=== PATIENT | female | born 1950 | race Caucasian/White ===

== ENCOUNTER 2022-11-25 09:38 | Emergency (ER) | payer OTHER ==
--- OUTSIDE RECORDS SUMMARY | 2022-11-25 09:41 | XMS REPORT | Continuity of Care Document ---
:1950 Author Organization [facility] t Address [address] [place] [address] Dr. White. [address] [place] [address] Care Team Providers Name Role Phone MAGDALENE Attending Clinician Unavailable Kennedy_Rashel Attending Clinician Unavailable [facility] Attending Clinician Unavailable Diego Sharma MD Attending Clinician Doctor Unassigned, [facility] Attending Clinician Unavailable 1, [facility] Attending Clinician Unavailable MAGDALENE Admitting Clinician Unavailable Yolande Admitting Clinician Unavailable [facility] Admitting Clinician Unavailable Diego Sharma MD Admitting Clinician Payers Payer Name Policy Type Policy Number Effective Date Expiration Date S juan pablo [facility] [place] - [id number] 2020 [employer] (MEDICARE 00:00:00 REPLACEMENT/ADVANTA GE - HMO) [facility] - AARP - [id number] MEDICARE SOLUTIONS - MEDICARE COMPLETE (MEDICARE REPLACEMENT PPO) Problems Condition Condition Condition Status Onset Resolution Last Treating Co mments Source Name Details Category Date Date Treatment Clinician Date Infection Infection Problem Active [place] of foot of Foot 5-06 da 00:00: Medical 00 Group Abnormal Abnormal Problem Active [place] gait due Gait Due 2-02 da to muscle to Muscle 00:00: Medi kunal weakness Weakness 00 Group Type 2 Type 2 Problem Active 2019-10 [place] diabetes Diabetes 0-20 da mellitus Mellitus 00:00: Medica l without without 00 Group complicati Complicati on on Morbid Morbid Problem Active 2019-10 [place] obesity Obesity 0-20 da 00:00: Medical 00 Group Injury of Injury of Problem Active 2019-10 [place] foot Foot 0-20 da 00:00: Medical Group Body mass Body Mass Problem Active 2019-10 [place] index 40+ Index 40+ 0-20 da - severely - Severely 00:00: Me dical obese Obese 00 Group Pain in Pain in Problem Active [place] right hip Right Hip 2-11 da joint Joint 00:00: Medical 00 Group Urinary Urinary Problem Active 2018-10 [place] incontinen Incontinen 1-25 da ce ce 00:00: Medical 00 Group Hypothyroi Hypothyroi Problem Active M [place] dism dism 6-18 da 00:00: Medical 00 Group Candidiasi Candidiasi Problem Active M [place] s of skin s of Skin da Medical Group Diabetes Diabetes Problem Active [place] mellitus Mellitus [facility] Hyperlipid Hyperlipid Problem Active M [facility] emia emia [facility] Obesity Obesity Problem Active [facility] Postmenopa Postmenopa Problem Active M [facility] usal usal da bleeding Bleeding Medica l Group Hemorrhage Hemorrhage Problem Active M [facility] of rectum of Rectum da and anus and Anus Medica l Group Allergies, Adverse Reactions, Alerts This patient has no known allergies or adverse reactions. Social History Social Habit Start Date Stop Date Quantity Comments Source Sex Assigned At [facility] y of [facility] Tobacco Comment 2019-06-10 2019-06-10 quit 40 years Univer sity of 00:00:00 00:00:00 ago [facility] Smoking Status Start Date Stop Date Source Unknown if ever smoked [facility] Former smoker 2019-06-10 00:00:00 2019-06-10 00:00:00 [facility] Medications Ordered Filled Start Stop Current Ordering Indication Dosage Frequency Signature Comments Components Source Medication Medication Date Date Medication? Clinician (SIG) Name Name gemfibrozil 2019-0 Yes 600mg Take 600 U nivers 600 mg 8-28 mg by ity of tablet 15:42: mouth 2 [place] 30 (two) Medical times Branch daily before breakfast and dinner. glyBURIDE-m 2019-0 Yes 1{tbl} Take 1 Un luz etformin 8-28 tablet by ity of 5-500 mg 15:42: mouth 2 [place] tablet 30 (two) Medical times Branch daily with meals. gemfibrozil 2019-0 Yes 600mg Take 600 U nivers 600 mg 8-28 mg by ity of tablet 15:42: mouth 2 [place] 30 (two) Medical times Branch daily before breakfast and dinner. glyBURIDE-m 2019-0 Yes 1{tbl} Take 1 Un luz etformin 8-28 tablet by ity of 5-500 mg 15:42: mouth 2 [place] tablet 30 (two) Medical times Branch daily with meals. water for Yes PRN, Univers irrigation 06-11 Starting ity o f irrigation 14:23: Sun [place] solution 06/11/19 at Medic al 0923, Branch Until Discontinu ed, Routine, Intra-op sodium 2018-0 Yes PRN, Univers chloride 06-11 Starting ity of (NS) 14:23: Sun [place] injection 06/11/19 at [facility] 0923, [place] Until Discontinu ed, Routine, Intra-op neomycin-po 2018-0 Yes PRN, [facility] lymyxin-dex 06-11 Starting ity of amethasone 14:23: Sun [place] (MAXITROL) 06/11/[address] [facility] ical 3.5 0923, Branch mg/g-10,000 Until unit/g-0.1 Discontinu % ed, ophthalmic Routine, ointment Intra-op lidocaine-e 2018-0 Yes PRN, [facility] pinephrine 06-11 Starting ity o f (XYLOCAINE 14:22: Sun [place] W/EPINEPHRI 06/11/19 at Or dical NE) 2 0922, Branch %-1:200,000 Until injection Discontinu ed, Routine, Intra-op Hyaluronida 2018-0 Yes PRN, [facility] se, Human 06-11 Starting ity of Recomb. 14:21: Sun [place] (HYLENEX) 06/11/19 at [facility] injection 0921, Branch Until Discontinu ed, Routine, Intra-op gentamicin 2018-0 Yes PRN, Univers injection 06-11 Starting ity of 14:21: Sun [place] 06/11/19 at [facility] 0921, Branch Until Discontinu ed, JUDI, Intra-op EPINEPHrine 2019-0 Yes PRN, Univer s 1:1,000 (1 06-11 Starting ity o f mg/mL) 14:20: Sun (ADRENALIN) 06/11/19 at Or dical injection 09, Branch Until Discontinu ed, Routine, Intra-op DUOVISC 2019-0 Yes PRN, Univers (DUOVISC 06-11 Starting ity of VISCO 14:20: Sun ELASTIC) 3 06/11/[address] [facility] ica %-4 %(0.5 20, Branch mL) 1 % Until (0.55 mL) Discontinu intraocular ed, injection Routine, Intra-op dexamethaso 2018-0 Yes PRN, Univer s ne 06-11 Starting ity of (DECADRON 14:19: Sun PHOSPHATE) 06/11/[address] [facility] ical injection 19, Branch Until Discontinu ed, Routine, Intra-op ceFAZolin 2018-0 Yes PRN, Univers (ANCEF) 06-11 Starting ity of injection 14:19: Sun06/11/19 at [facility] 0919, Branch Until Discontinu ed, JUDI, Intra-op carbachol 2018-0 Yes PRN, Univers (MIOSTAT) 06-11 Starting ity of 0.01 % 14:19: Sun intraocular 06/11/19 at Or dical injection 918, Branch Until Discontinu ed, Routine, Intra-op bupivacaine 2019-0 Yes PRN, Univer s (preserv 06-11 Starting ity of free) 14:18: Sun (SENSORCAIN 06/11/19 at Or dicpa E MPF) 0.75 917, Branch % (7.5 Until mg/mL) Discontinu injection ed, Routine, Intra-op balanced 2019-0 Yes PRN, Univers salt irrig 06-11 Starting ity o f soln comb1 14:18: Sun (BSS PLUS) 06/11/[address] [facility] ical ophthalmic 917, Branch solution Until 500 mL bag Discontinu ed, Routine, Intra-op phenylephri 2019- 2019- No 1[drp] 1 Drop, Univers ne 06-11 Right Eye, ity of (AMY-SYNEPH 14:00: 13:34 Q10M, 3 [place]) 2.5 % 00 :00 doses, Medica l ophthalmic First dose Bra nch drops 1 on Sun Drop 06/11/19 at 0900, Last dose on Sun06/11/19 at 0920, Routine, DSU Pre-op cyclopentol 2019- No 1[drp] 1 Drop, Univers ate 06-11 Right Eye, ity of (CYCLOGYL) 14:00: 13:35 Q10M, 3 [place] as 1 % 00 :00 doses, Medical ophthalmic First dose Bra nch drops 1 on Sun Drop 06/11/19 at 0900, Last dose on Sun06/11/19 at 0920, Routine, DSU Pre-op tropicamide 2019- No 1[drp] 1 Drop, Univers (MYDRIACYL) 06-11 Right Eye, i ty of 1 % 14:00: 13:34 Q10M, 3 [place] ophthalmic 00 :00 doses, Medical drops 1 First dose Branch Drop on Sun06/11/19 at 0900, Last dose on Sun06/11/19 at 0920, Routine, DSU Pre-op ketorolac 2019- No 1[drp] 1 Drop, Un luz (ACULAR) 06-11 Right Eye, ity of 0.5 % 14:00: 13:34 Q10M, 3 [place] ophthalmic 00 :00 doses, Medical solution 1 First dose Bra nch Drop on Sun06/11/19 at 0900, Last dose on Sun06/11/19 at 0920, Routine, DSU Pre-op
Reason for Non-Formul yeny Use: SPECIFIC INDICATION FOR NONFORMULA RY PRODUCT
tribunal member approving Non-formul yeny medication : DIEGO SHARMA NaCl 0.9% Yes 500mL at 20 Univer s (NS) IV 8-28 mL/hr, IV ity of infusion 13:15: Infusion, [place] 500 [place] 00 CONTINUOUS Medical , Starting Branch Sun06/11/19 at 0815, Until Discontinu ed, Routine, DSU Pre-op Easy Touch Easy Touch No Easy Touch [place] Alcohol Alcohol Alcohol da Prep Pads Prep Pads Prep Pads Medical USE TO TEST USE TO TEST USE TO Group BLOOD BLOOD TEST BLOOD GLUCOSE GLUCOSE GLUCOSE ONCE DAILY ONCE DAILY ONCE DAILY gemfibrozil gemfibrozil No gemfibrozi [place] 600 mg 600 mg l 600 mg da tablet TAKE tablet TAKE tablet Medical 1 TABLET BY 1 TABLET BY TAKE 1 Group MOUTH TWICE MOUTH TWICE TABLET BY DAILY DAILY MOUTH TWICE DAILY glyburide 5 glyburide 5 No glyburide [place] mg-metformi mg-metformi 5 d a n 500 mg n 500 mg mg-metform M edical tablet TAKE tablet TAKE in 500 mg Group 1 TABLET BY 1 TABLET BY tablet MOUTH TWICE MOUTH TWICE TAKE 1 DAILY FOR DAILY FOR TABLET BY DIABETES DIABETES MOUTH TWICE DAILY FOR DIABETES lancing lancing No lancing [place] device USE device USE device USE da WITH WITH WITH Medical LANCETS TO LANCETS TO LANCETS TO Group TEST BLOOD TEST BLOOD TEST BLOOD GLUCOSE GLUCOSE GLUCOSE OneTouch OneTouch No OneTouch [place] Ultra Ultra Ultra da Control Control Control Medica l solution solution solution Sandra up USE TO USE TO USE TO CALIBRATE CALIBRATE CALIBRATE METER METER METER OneTouch OneTouch No OneTouch [place] Ultra Test Ultra Test Ultra Test da strips USE strips USE strips USE Medical TO TEST TO TEST TO TEST Group BLOOD BLOOD BLOOD GLUCOSE GLUCOSE GLUCOSE ONCE DAILY ONCE DAILY ONCE DAILY OneTouch OneTouch No OneTouch [place] Ultra2 Ultra2 Ultra2 da Meter USE Meter USE Meter USE Medical TO TEST TO TEST TO TEST Group BLOOD BLOOD BLOOD GLUCOSE GLUCOSE GLUCOSE Safety Safety No Safety [place] Lancets 28 Lancets 28 Lancets 28 da gauge USE gauge USE gauge USE Medical TO TEST TO TEST TO TEST Group BLOOD BLOOD BLOOD GLUCOSE GLUCOSE GLUCOSE ONCE DAILY ONCE DAILY ONCE DAILY Vital Signs Vital Name Observation Time Observation Value Comments Source BP Diastolic 2022-02-28 00:00:00 86 mm[Hg] [facility] Height 2022-02-28 00:00:00 63 [in_i] [facility] BMI (Body Mass 2022-02-28 00:00:00 41.5 kg/m2 [facility] Medical Index) Group BP Systolic 2022-02-28 00:00:00 139 mm[Hg] [facility] Body Weight 2022-02-28 00:00:00 3752 [oz_av] [facility] BP Diastolic 2021-08-02 00:00:00 75 mm[Hg] [facility] Height 2021-08-02 00:00:00 63 [in_i] [facility] BMI (Body Mass 2021-08-02 00:00:00 41.6 kg/m2 [facility] Medical Index) Group BP Systolic 2021-08-02 00:00:00 137 mm[Hg] [facility] Body Weight 2021-08-02 00:00:00 3755.2 [oz_av] [facility] Height 2021-02-17 00:00:00 63 [in_i] [facility] BP Systolic 2021-02-17 00:00:00 129 mm[Hg] [facility] BP Diastolic 2021-02-17 00:00:00 82 mm[Hg] [facility] BP Diastolic 2020-11-16 00:00:00 59 mm[Hg] [facility] Height 2020-11-16 00:00:00 63 [in_i] [facility] BMI (Body Mass 2020-11-16 00:00:00 45.4 kg/m2 [facility] Medical Index) Group BP Systolic 2020-11-16 00:00:00 159 mm[Hg] [facility] Body Weight 2020-11-16 00:00:00 4104 [oz_av] [facility] BP Diastolic 2020-08-03 00:00:00 60 mm[Hg] [facility] Height 2020-08-03 00:00:00 63 [in_i] [facility] BMI (Body Mass 2020-08-03 00:00:00 48.4 kg/m2 [facility] Medical Index) Group BP Systolic 2020-08-03 00:00:00 125 mm[Hg] [facility] Body Weight 2020-08-03 00:00:00 4374 [oz_av] [facility] BP Diastolic 2019-11-25 00:00:00 88 mm[Hg] [facility] Height 2019-11-25 00:00:00 63 [in_i] [facility] BMI (Body Mass 2019-11-25 00:00:00 46.1 kg/m2 [facility] Index) Group BP Systolic 2019-11-25 00:00:00 159 mm[Hg] [facility] Body Weight 2019-11-25 00:00:00 4160 [oz_av] [facility] BP Diastolic 2019-09-08 00:00:00 80 mm[Hg] [facility] Height 2019-09-08 00:00:00 63 [in_i] [facility] BP Systolic 2019-09-08 00:00:00 163 mm[Hg] [facility] Systolic blood 2019-06-11 15:19:00 131 mm[Hg] Univer sity of pressure [facility] Diastolic blood 2019-06-11 15:19:00 70 mm[Hg] Unive rsity of pressure [facility] Heart rate 2019-06-11 15:19:00 69 /min [facility] Body temperature 2019-06-11 15:19:00 36.67 [facility] rate 2019-06-11 15:19:00 18 /min [facility] Oxygen saturation in 2019-06-11 15:19:00 94 /min [place] [facility] blood by [facility] Pulse oximetry Branch Body height 2019-06-10 13:00:00 160 cm [facility] Body weight 2019-06-10 13:00:00 122.471 kg [facility] BMI 2019-06-10 13:00:00 47.83 kg/m2 [facility] Systolic blood 2019-06-11 15:19:00 131 mm[Hg] Univer sity of pressure [facility] Diastolic blood 2019-06-11 15:19:00 70 mm[Hg] Unive rsity of pressure [facility] Heart rate 2019-06-11 15:19:00 69 /min [facility] Body temperature 2019-06-11 15:19:00 36.67 [facility] Respiratory rate 2019-06-11 15:19:00 18 /min [facility] [place] [facility] Oxygen saturation in 2019-06-11 15:19:00 94 /min [facility] blood by [facility] Pulse oximetry Branch Body height 2019-06-10 13:00:00 160 cm [facility] [place] Body weight 2019-06-10 13:00:00 122.471 kg [facility] [place] BMI 2019-06-10 13:00:00 47.83 kg/m2 [facility] BP Diastolic 2019-04-07 00:00:00 70 mm[Hg] [facility] Height 2019-04-07 00:00:00 63 [in_i] [facility] BMI (Body Mass 2019-04-07 00:00:00 48 kg/m2 [facility] Medical Index) Group BP Systolic 2019-04-07 00:00:00 124 mm[Hg] [facility] Body Weight 2019-04-07 00:00:00 4336 [oz_av] [facility] BP Diastolic 2019-02-27 00:00:00 69 mm[Hg] [facility] Height 2019-02-27 00:00:00 63 [in_i] [facility] BP Systolic 2019-02-27 00:00:00 131 mm[Hg] [facility] BP Diastolic 2018-10-07 00:00:00 83 mm[Hg] [facility] Height 2018-10-07 00:00:00 63 [in_i] [facility] BMI (Body Mass 2018-10-07 00:00:00 48.2 kg/m2 [facility] Medical Index) Group BP Systolic 2018-10-07 00:00:00 148 mm[Hg] [facility] Body Weight 2018-10-07 00:00:00 4352 [oz_av] [facility] Procedures Procedure Date / Time Performing Clinician Source Performed unlisted imaging order 2019-11-25 00:00:00 [facility] DAY [facility]GERY - ADC 2019-06-11 05:01:00 Doctor Un[facility] CONSENT/REFUSAL FOR 2019-06-04 21:49:49 Doctor Unassigned, [facility] DIAGNOSIS AND TREATMENT [facility] ASSIGNMENT OF BENEFITS 2019-06-04 21:49:32 Doctor Unassigned, [facility] NOTICE OF PRIVACY 2019-06-04 21:49:14 [facility] CONSENT/REFUSAL FOR 2019-06-04 21:48:56 Doctor Unassigned, [facility] DIAGNOSIS AND TREATMENT [facility] ASSIGNMENT OF BENEFITS 2019-06-04 21:48:37 Doctor Unassigned, [facility] PHYSICIAN ORDERS 2019-06-04 05:01:00 Doctor Unassigned, [facility] Append[facility] Bladder Suspension [place] [facility] Hysterectomy [facility] Anesth Tubal Ligation [facility] Lap Cholecystectomy [place] [facility] Cervical Laminoplsty 2/> [facility] Encounters Start End Encounter Admission Attending Care Care Encounter Source Date/Time Date/Time Type Type Clinicians Facility Department ID 2022-05-16 2022-05-16 Outpatient [place] [id number] [place] 00:00:00 00:00:00 [facility] 0802 [facility] 2022-02-28 2022-02-28 Isidro Lanier [facility] [place] - [id number]- [place] 00:00:00 00:00:00 MD Rashel: 517 da 600 [facility] [address], [place] [address] , Ph. 2021-08-02 2021-08-02 Isidro Lanier [facility] [place] - [id number] [place] 00:00:00 00:00:00 MD Rashel: 019 da 600 [facility] 201, [facility] [address] , Ph. 2021-02-17 2021-02-17 Isidro Lanier [facility] [place] - [id number] [place] 00:00:00 00:00:00 MD Rashel: [address], [place] [address] , Ph. 2021-02-16 2021-02-16 Outpatient A_Byrd [facility] [id number] [place] 11:41:00 11:41:00 505 [facility] 2020-11-16 2020-11-16 Isidro N A_Byrd [facility] [place] - [id number] [place] 00:00:00 00:00:00 MD Rashel: [address], [place] [address] , Ph. 2020-11-15 2020-11-15 [facility] [id number] [place] 04:28:00 04:28:00 201 Medical [facility] 2020-10-26 2020-10-[address] [facility] [id number] [place] 10:27:00 10:27:00 112 Medical [facility] 2020-08-03 2020-08-03 Isidro N [facility] [place] - [id number]- [id number] [place] 00:00:00 00:00:00 MD Rashel: [address], [place] [address] , Ph. 2019-12-24 2019-12-24 Outpatient A_[facility]rd [facility] [id number] [place] 11:03:00 11:03:00 311 Medical [facility] 2019-11-25 2019-11-25 Isidro N A_Byrd MM [place] - 9439- [place] 00:00:00 00:00:00 MD Rashel: [address], [place] [address] , Ph. 2019-10-11 2019-10-11 Outpatient A_Byrd [facility] [id number] [place] 03:37:00 03:37:00 228 [facility] 2019-09-08 2019-09-08 Isidro N [facility] [place] - [id number] [place] 00:00:00 00:00:00 MD Rashel: 125 600 [facility] [place] [address], [facility], [place] [address] , Ph. 2019-06-11 2019-06-11 [facility] [id number] [facility] 07:40:00 10:40:00 Encounter Diego Heath [id number] ity of [place] [id number] [place] [id number] [address] 2019-06-11 2019-06-11 [facility] [id number] 07:40:00 10:40:00 Encounter Diego Heath [id number] [place] [id number] Surgical [id number] [place] [id number] 2019-06-11 2019-06-11 Orders Doctor MARGARITA [id number] [facility] 00:00:00 00:00:00 Only Unassigned, ELIZ [id number] ity of [facility] [id number] Kishan as [id number] [facility] 009 [place] 2019-06-11 2019-06-11 Orders Doctor MARGARITA [id number] 00:00:00 00:00:00 Only Unassigned, ELIZ [id number] [facility] [id number] [facility] 2019-06-04 2019-06-04 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, 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 [facility] [id number] [facility] 16:51:56 17:06:56 Visit Diego Sharma [id number] 0 [place] [id number] [place] [id number] [facility] 353 Branch 2019-06-04 2019-06-04 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, Adc Lab [facility] [id number] 16:51:56 17:06:56 Visit Kumar [id number] [place] [id number] [place] [id number] 353 2019-04-07 2019-04-07 Isidro Enrique [facility] [place] - [id number] [place] 00:00:00 00:00:00 MD Rashel: 624 da 600 [facility], [place] [address], [place] [address] , Ph. 2019-02-27 2019-02-27 Isidro Enrique [facility] [place] - [id number] [place] 00:00:00 00:00:00 MD Rashel: 516 da 600 [facility], [place] [address], [facility] [address] , Ph. 2018-10-07 2018-10-07 Isidro Enrique [facility] [place] - [id number] [place] 00:00:00 00:00:00 MD Rashel: 224 da 600 [facility], [facility] [address], [place] [address] , Ph. Results This patient has no known results.
--- NOTE | 2022-11-25 10:39 | RAD REPORT ---
EXAM DESCRIPTION: CT - [id number] - 11/25/2022 10:32 am CLINICAL HISTORY: Trauma, head and neck injury. head injury COMPARISON: <Comparisons> TECHNIQUE: Axial 5 mm thick images of the head were obtained. Axial 2 mm thick images of the cervical spine were obtained with sagittal and coronal reconstruction images generated and reviewed. All CT scans are performed using dose optimization technique as appropriate and may include automated exposure control or mA/KV adjustment according to patient size. FINDINGS: CT HEAD WITHOUT CONTRAST: No acute hemorrhage, hydrocephalus or extra-axial collection is identified.No areas of brain edema or midline shift. Right forehead laceration The paranasal sinuses and mastoids are clear.The calvarium is intact. CT CERVICAL SPINE WITHOUT CONTRAST: No fracture or subluxation.No prevertebral soft tissues swelling is identified. Status post C5-C7 ACD F. Hardware is intact. Neural foraminal narrowing is on the left at these levels. There has been post erior decompression as well. IMPRESSION: No acute intracranial or cervical spine findings.
[2022-11-25] MEDS ORDERED: LIDOCAINE 1% 20 ML MDV ONE (11:20)
--- NOTE | 2022-11-25 12:14 | ER ---
Nurse's Notes [facility] Name: Angela Mccain Age: 72 yrs Sex: Female : 1950 Arrival Date: 11/25/2022 Time: 09:39 Bed 14 Private MD: Diagnosis: Head injury;Facial laceration Presentation: 11/25 09:40 Chief complaint: EMS states: Fell forward out of wheelchair while reaching for ph cigarettes, hit R side of forehead on a post, no LOC, does not take blood thinners. Coronavirus screen: Vaccine status: Patient reports being unvaccinated. Ebola Screen: No symptoms or risks identified at this time. Initial Sepsis Screen: Does the patient meet any 2 criteria? No. Patient's initial sepsis screen is negative. Does the patient have a suspected source of infection? No. Patient's initial sepsis screen is negative. Risk Assessment: Do you want to hurt yourself or someone else? Patient reports no desire to harm self or others. Onset of symptoms was November 25, 2022. 09:40 Method Of Arrival: EMS: [facility] 09:40 Acuity: RADHA 3 09:40 Care prior to arrival: Glucose check: 160. Mechanism of Injury: Fall wheelchair. Trauma db event details: Injury occurred in the [facility]. Triage Assessment: 09:44 General: Appears in no apparent distress. comfortable, Behavior is calm, cooperative, ph appropriate for age. Pain: Complains of pain in right side of forehead. Neuro: Level of Consciousness is awake, alert, obeys commands, Oriented to person, place, time, situation. Trauma Activation: Not Applicable Physician: ED Physician; Name: ; Notified At: ; Arrived At: Physician: General Surgeon; Name: ; Notified At: ; Arrived At: Physician: Radiology; Name: ; Notified At: ; Arrived At: Physician: Respiratory; Name: ; Notified At: ; Arrived At: Physician: Lab; Name: ; Notified At: ; Arrived At: Historical: - Allergies: 09:43 vaccines; ph - PMHx: 09:41 Diabetes mellitus; Hypercholesterolemia; ph - Immunization history:: Adult Immunizations not immunized. - Social history:: Smoking status: Patient reports the use of cigarette tobacco products, denies chronic smoking, but will smoke occasionally. - Immunization history: Last tetanus immunization: - up to date. Screenin:05 Abuse screen: Denies threats or abuse. Denies injuries from another. Tuberculosis db screening: No symptoms or risk factors identified. 12:37 [facility] ED Fall Risk Assessment (Adult) History of falling in the last 3 months, db including since admission Yes- single mechanical fall (1 pt) Confusion or Disorientation No (0 pts) Intoxicated or Sedated No (0 pts) Impaired Gait Yes (1 pt) Mobility Assist Device Used Yes (1 pt) Altered Elimination No (0 pt) Score/Fall Risk Level 3 or more points = High Risk Oriented to surroundings, Maintained a safe environment, Educated pt \T\ family on fall prevention, incl call for assistance when getting out of bed, Assessed \T\ reinforced patient's understanding of fall precautions. Nutritional screening: No deficits noted. Primary Survey: 09:40 NO uncontrolled hemorrhage observed. Breathing/Chest: Spontaneous respiratory effort, db equal unlabored respirations, breath sounds clear bilaterally, regular pattern, symmetrical chest rise and fall. Respiratory effort: spontaneous, unlabored, Breath sounds: clear, bilaterally. Respiratory pattern: regular, Chest inspection: symmetrical rise and fall of the chest. Circulation: No external hemorrhage present. Regular and strong central pulse, skin warm/dry/normal color. Disability Client is alert. Exposure/Environment: A warming method has been applied: A warm blanket has been provided to the patient. Reassessment Breathing: Spontaneous respiratory effort, equal unlabored respirations, breath sounds clear bilaterally, regular pattern with symmetrical chest rise and fall. Respiratory effort Spontaneous Unlabored Breath sounds Clear Respiratory pattern Regular Circulation: No external hemorrhage noted. Regular and strong central pulse, skin warm/dry/normal color. Disability: Alert. Assessment: 09:40 Reassessment: Patient appears in no apparent distress at this time. small laceration to db head. Respiratory: Airway is patent Respiratory effort is even, unlabored, Respiratory pattern is regular, symmetrical. Injury Description: Head injury sustained to face and right side of forehead. 10:06 Reassessment: Patient appears in no apparent distress at this time. Patient and/or db family updated on plan of care and expected duration. Pain level reassessed. Patient is alert, oriented x 3, equal unlabored respirations, skin warm/dry/pink. 10:56 Reassessment: Patient and/or family updated on plan of care and expected duration. Pain db level reassessed. Patient is alert, oriented x 3, equal unlabored respirations, skin warm/dry/pink. patient returned to room from CT. Family at bedside. 11:30 Reassessment: provider at bedside for laceration repair. General: Appears in no db apparent distress. comfortable, Behavior is calm, cooperative. 12:13 Reassessment: Patient appears in no apparent distress at this time. triple antibiotic db ointment placed on suture area over right eye. Vital Signs: 09:40 BP 138 / 51; Pulse 74; Resp 18; Temp 97.7; Pulse Ox 97% on R/A; Weight 108.86 kg; ph Height 5 ft. 3 in. (160.02 cm); 11:10 BP 105 / 55; Pulse 65; Resp 18; Pulse Ox 98% on R/A; db 12:00 BP 106 / 42; Pulse 68; Resp 18; Pulse Ox 99% on R/A; db 09:40 Body Mass Index 42.51 (108.86 kg, 160.02 cm) ph [place] Coma Score: 10:05 Eye Response: spontaneous(4). Verbal Response: oriented(5). Motor Response: obeys db commands(6). Total: 15. Trauma Score (Adult): 10:05 Eye Response: spontaneous(1); Verbal Response: oriented(1); Motor Response: obeys db commands(2); Systolic BP: > 89 mm Hg(4); Respiratory Rate: 10 to 29 per min(4); Bibiana Score: 15; Trauma Score: 12 ED Course: 09:39 Patient arrived in ED. ph 09:39 Gonzalez Cronin PA is PHCP. jmm 09:39 Malick Ramos MD is Attending Physician. jmm 09:41 Triage completed. ph 09:44 Arm band placed on Patient placed in an exam room, on a stretcher, on pulse oximetry. ph 10:02 Sharon Lovelace, JESSE is Primary Nurse. db 10:05 Patient has correct armband on for positive identification. Bed in low position. Call db light in reach. Side rails up X2. 10:05 Patient maintains SpO2 saturation greater than 95% on room air. db 10:34 CT Head C Spine In Process Unspecified. EDMS 12:14 Thermoregulation: warm blanket given to patient. db 12:37 No provider procedures requiring assistance completed. Patient did not have IV access db during this emergency room visit. Administered Medications: 11:19 Drug: Lidocaine (1 %) 20 ml {Note: Given to PA for laceration repair.} Volume: 20 ml; db Route: Infiltration; Medication: 11:21 VIS not applicable for this client. db Intake: 12:37 PO: 0ml; Total: 0ml. db Outcome: 12:14 Discharge ordered by . ade 12:36 Discharged to home via wheelchair, with family. db 12:36 Condition: stable 12:36 Discharge instructions given to patient, family, Instructed on discharge instructions, follow up and referral plans. 12:37 Patient's length of stay was not longer than 2 hours. db 12:45 Patient left the ED. mm9 Signatures: Dispatcher [employer] EDMS Gonzalez Cronin PA PA jmm Hall, Patricia, RN RN ph Benton, Danielle, RN RN db Martinez, Maria mm9 Corrections: (The following items were deleted from the chart) 09:44 09:41 Allergies: No Known Allergies; [facility]
--- NOTE | 2022-11-25 12:15 | EDPHYS ---
Physician Documentation [facility] Name: Angela Mccain Age: 72 yrs Sex: Female : 1950 Arrival Date: 11/25/2022 Time: 09:39 Bed 14 Private MD: ED Physician Malick Ramos HPI: 11/25 09:39 This 72 yrs old Unknown Female presents to ER via EMS with complaints of Fall Injury. jmm 09:39 Details of fall: The patient fell from an upright position. Onset: The symptoms/episode jmm began/occurred acutely. Associated injuries: The patient sustained injury to the head. Is a 72-year-old female with history of diabetes mellitus, hyperlipidemia the presents emerged part with complaints of headache and neck pain following a fall which occurred just prior to arrival. Patient states she tripped hitting her head. Denies LOC LOC. Patient is not taking any anticoagulants. Denies nausea or vomiting. Historical: - Allergies: 09:43 vaccines; ph - PMHx: 09:41 Diabetes mellitus; Hypercholesterolemia; ph - Immunization history:: Adult Immunizations not immunized. - Social history:: Smoking status: Patient reports the use of cigarette tobacco products, denies chronic smoking, but will smoke occasionally. - Immunization history: Last tetanus immunization: - up to date. ROS: 09:39 Constitutional: Negative for fever, chills, and weight loss, Cardiovascular: Negative jmm for chest pain, palpitations, and edema, Respiratory: Negative for shortness of breath, cough, wheezing, and pleuritic chest pain. 09:39 Neuro: Positive for headache. 09:39 All other systems are negative. Exam: 09:39 Constitutional: This is a well developed, well nourished patient who is awake, alert, jmm and in no acute distress. 09:39 Eyes: EOMI, no conjunctival erythema appreciated ENT: Moist Mucus Membranes Neck: Trachea midline, Supple Chest/axilla: Normal chest wall appearance and motion. Cardiovascular: Regular rate and rhythm. No edema appreciated Respiratory: Normal respirations, no respiratory distress appreciated Abdomen/GI: Non distended Back: Normal ROM Skin: General appearance color normal MS/ Extremity: Moves all extremities, no obvious deformities appreciated, no edema noted to the lower extremities 09:39 Head/face: 3 cm laceration noted to the right eyebrow. 09:39 Neuro: Orientation: is normal, Mentation: is normal, Memory: is normal. 09:39 Psych: Behavior/mood is pleasant, cooperative. Vital Signs: 09:40 BP 138 / 51; Pulse 74; Resp 18; Temp 97.7; Pulse Ox 97% on R/A; Weight 108.86 kg; ph Height 5 ft. 3 in. (160.02 cm); 11:10 BP 105 / 55; Pulse 65; Resp 18; Pulse Ox 98% on R/A; db 12:00 BP 106 / 42; Pulse 68; Resp 18; Pulse Ox 99% on R/A; db 09:40 Body Mass Index 42.51 (108.86 kg, 160.02 cm) ph [place] Coma Score: 10:05 Eye Response: spontaneous(4). Verbal Response: oriented(5). Motor Response: obeys db commands(6). Total: 15. Trauma Score (Adult): 10:05 Eye Response: spontaneous(1); Verbal Response: oriented(1); Motor Response: obeys db commands(2); Systolic BP: > 89 mm Hg(4); Respiratory Rate: 10 to 29 per min(4); Bibiana Score: 15; Trauma Score: 12 Laceration: 12:13 Wound Repair of 3cm ( 1.2in ) subcutaneous laceration to middle aspect of right eyebrow jmm and outer aspect of right eyebrow. Distal neuro/vascular/tendon intact. Anesthesia: Local anesthetic administered with 3 mls of 1% lidocaine. Wound prep: Simple cleansing with hibiclenz by ut. Skin closed with 4 5-0 Prolene using simple sutures and sterile technique. Patient tolerated well. MDM: 09:39 Patient medically screened. [facility] 12:12 Data reviewed: vital signs, nurses notes. I considered the following discharge [facility] prescriptions or medication management in the emergency department Medications were administered in the Emergency Department. See MAR. Counseling: I had a detailed discussion with the patient and/or guardian regarding: the historical points, exam findings, and any diagnostic results supporting the discharge/admit diagnosis, radiology results, the need for outpatient follow up, to return to the emergency department if symptoms worsen or persist or if there are any questions or concerns that arise at home. ED course: CT is negative. Patient given head injury and wound infection return precautions.. 11/25 09:40 Order name: CT Head C Spine; Complete Time: 10:42 [facility] Administered Medications: 11:19 Drug: Lidocaine (1 %) 20 ml {Note: Given to CLAUDIA for laceration repair.} Volume: 20 ml; db Route: Infiltration; Disposition Summary: 11/25/22 12:14 Discharge Ordered Location: Home [facility] Condition: Stable jm Diagnosis - Head injury jm - Facial laceration [facility] Followup: [facility] - With: Private Physician - When: 1 week - Reason: Recheck today's complaints, Continuance of care, Staple/Suture removal, Re-evaluation by your physician Discharge Instructions: - Discharge Summary Sheet jm - Head Injury, Adult jm - Facial Laceration [facility] Forms: - Medication Reconciliation Form [facility] - Thank You Letter [facility] - Antibiotic Education [facility] - Prescription Opioid Use [facility] Signatures: Dispatcher [employer] Gonzalez Cisneros PA PA jmm Hall, Patricia, RN RN ph Benton, Danielle, RN RN db Corrections: (The following items were deleted from the chart) 09:44 09:41 Allergies: No Known Allergies; [facility]
[2022-11-25 12:51] VITALS: TEMP 97.7
[2022-11-25 12:53] VITALS: BP 106/42; O2SAT 99
== END 2022-11-25 12:45 | disposition home or self-care (01) ==
LOC: ER 09:38
PROC: 0HQ1XZZ Repair Face Skin, External Approach (ICD-10-PCS; principal; 2022-11-25)
DX: S01.111A Laceration without foreign body of right eyelid and periocular area, initial encounter (principal); S09.90XA Unspecified injury of head, initial encounter; E11.9 Type 2 diabetes mellitus without complications; E78.00 Pure hypercholesterolemia, unspecified; F17.210 Nicotine dependence, cigarettes, uncomplicated; Z88.7 Allergy status to serum and vaccine
CPT/HCPCS: 70450; 72125; 99284; 12013; J2001

== ENCOUNTER 2024-03-17 18:12 | Inpatient (IN) | payer OTHER ==
--- OUTSIDE RECORDS SUMMARY | 2024-03-17 18:19 | XMS REPORT | Continuity of Care Document ---
Author Name Unknown Address [address] [facility] [address] [place] [address] [facility] Address [address] [facility] [address] [place] [address] Care Team Providers Care Supervisor Steffen House Name Role Phone SAMCON GUNN Attending Clinician Unavailable ERJOVION_Poonam Attending Clinician Unavailable AMBREEN_MIKHAIL Attending Clinician Unavailable A_Rashel Attending Clinician Unavailable [facility] Attending Clinician Unavailable Diego Gerard MD Attending Clinician [phone] Doctor Unassigned, Grandin Attending Clinician U navailable 1, [facility] Attending Clinician Unavailable ERJOVION_R Admitting Clinician Unavailable MAGDALENE Admitting Clinician Unavailable Yolande Admitting Clinician Unavailable [facility] Admitting Clinician Unavailable Diego Gerard MD Admitting Clinician [phone] Payers Payer Name Policy Type Policy Number Effective Date Expirati on Date Source [place] [place] 5 [id number] 2023 00:00:00 [facility] (MEDICARE REPLACEMENT/ADVANTA GE - HMO) [id number] 2023 00:00:00 [employer] (MEDICARE REPLACEMENT/ADVANTA GE - HMO) [id number] [place]: HAIDER DIEZ [id number] 2009 00:00:00 [facility] [place] [facility] (MEDICARE REPLACEMENT/ADVANTA GE - HMO) [id number] 2020 00:00:00 [facility] MEDICARE SOLUTIONS - MEDICARE COMPLETE (MEDICARE REPLACEMENT PPO) [id number] Problems Condition Name Condition Details Condition Category Status Onset Date Resolution Date Last Treatment Date Treating Clinician Comments Source Pulmonary emphysema Pulmonary Emphysema Problem Active 4 00:00: 00 [place] [facility] 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 Problem Active 01-16 00:00: 00 [place] [facility] Body mass index 40+ - severely obese Body Mass Index 40+ - Severely Obese Problem Active 4-04 00:00: 00 [place] [facility] Bilateral osteoarthr itis of knees Bilateral Osteoarthr itis of Knees Problem Active 4-04 00:00: 00 [place] [facility] Osteoarthr itis of joint of bilateral hands Osteoarthr itis of Joint of Bilateral Hands Problem Active 4-04 00:00: 00 [place] [facility] Type 2 diabetes mellitus Type 2 Diabetes Mellitus Problem Active 4-04 00:00: 00 [place] [facility] Hyperchole sterolemia Hyperchole sterolemia Problem Active 4-04 00:00: 00 [place] [facility] Morbid obesity Morbid Obesity Problem Active 4-04 00:00: 00 [place] [facility] Smoker Smoker Problem Active 4-04 00:00: 00 [place] [facility] Infection of foot Infection of Foot Problem Active 5-06 00:00: 00 [facility] Abnormal gait due to muscle weakness Abnormal Gait Due to Muscle Weakness Problem Active 2-02 00:00: 00 [facility] Type 2 diabetes mellitus without complicati on Type 2 Diabetes Mellitus without Complicati on Problem Active 2019-10 020 00:00: 00 [facility] Morbid obesity Morbid Obesity Problem Active 2019-10 0-20 00:00: 00 [facility] Injury of foot Injury of Foot Problem Active 2019-10 0 00:00: 00 [facility] Body mass index 40+ - severely obese Body Mass Index 40+ - Severely Obese Problem Active 2019-10 0-20 00:00: 00 [facility] Pain in right hip joint Pain in Right Hip Joint Problem Active 2-11 00:00: 00 [facility] Urinary incontinen ce Urinary Incontinen ce Problem Active 2018-10 00:00: 00 [facility] Hypothyroi dism Hypothyroi dism Problem Active 04-01 00[facility]00: 00 [facility] Candidiasi s of skin Candidiasi s of Skin Problem Active [facility] Diabetes mellitus Diabetes Mellitus Problem Active [facility] Hyperlipid emia Hyperlipid emia Problem Active [facility] Obesity Obesity Problem Active [facility] Postmenopa usal bleeding Postmenopa usal Bleeding Problem Active [facility] Hemorrhage of rectum and anus Hemorrhage of Rectum and Anus Problem Active [facility] Social History Social Habit Start Date Stop Date Quantity Comments Source Sex Assigned At [facility] Tobacco Comment 2019-06-10 00:00:00 2019-06-10 00:00:00 quit 40 years ago [facility] Smoking Status Start Date Stop Date Source Unknown if ever smoked [facility] Heavy Tobacco Smoker [facility] [place] Former smoker 2019-06-10 00:00:00 2019-06-10 00:00:00 [facility] Medications Ordered Medication Name Filled Medication Name Start Date Stop Date Current Medication? Ordering Clinician Indication Dosage Frequency Signature (SIG) Comments Components Source water for irrigation irrigation solution 06-11 14:23: 00 Yes PRN, Starting Sun06/11/19 at 0923, Until Discontinu ed, Routine, Intra-op [facility] sodium chloride (NS) injection 06-11 14:23: 00 Yes PRN, Starting Sun06/11/19 at 0923, Until Discontinu ed, Routine, Intra-op [facility] neomycin-po lymyxin-dex amethasone (MAXITROL) 3.5 mg/g-10,000 unit/g-0.1 % ophthalmic ointment 06-11 14:23: 00 Yes PRN, Starting Sun06/11/19 at 0923, Until Discontinu ed, Routine, Intra-op [facility] lidocaine-e pinephrine (XYLOCAINE W/EPINEPHRI NE) 2 %-1:200,000 injection 06-11 14:22: 00 Yes PRN, Starting Sun06/11/19 at 0922, Until Discontinu ed, Routine, Intra-op [facility] Hyaluronida se, Human Recomb. (HYLENEX) injection 06-11 14:21: 00 Yes PRN, Starting Sun06/11/19 at 0921, Until Discontinu ed, Routine, Intra-op [facility] gentamicin injection 06-11 14:21: 00 Yes PRN, Starting Sun06/11/19 at 0921, Until Discontinu ed, JUDI, Intra-op [facility] EPINEPHrine 1:1,000 (1 mg/mL) (ADRENALIN) injection 06-11 14:20: 00 Yes PRN, Starting Sun06/11/19 at 0920, Until Discontinu ed, Routine, Intra-op [facility] DUOVISC (DUOVISC VISCO ELASTIC) 3 %-4 %(0.5 mL) 1 % (0.55 mL) intraocular injection 06-11 14:20: 00 Yes PRN, Starting Sun06/11/19 at 0920, Until Discontinu ed, Routine, Intra-op [facility] dexamethaso ne (DECADRON PHOSPHATE) injection 06-11 14:19: 00 Yes PRN, Starting Sun06/11/19 at 0919, Until Discontinu ed, Routine, Intra-op [facility] ceFAZolin (ANCEF) injection 06-11 14:19: 00 Yes PRN, Starting Sun06/11/19 at 0919, Until Discontinu ed, JUDI, Intra-op [facility] carbachol (MIOSTAT) 0.01 % intraocular injection 06-11 14:19: 00 Yes PRN, Starting Sun06/11/19 at 0919, Until Discontinu ed, Routine, Intra-op [facility] bupivacaine (preserv free) (SENSORCAIN E MPF) 0.75 % (7.5 mg/mL) injection 06-11 14:18: 00 Yes PRN, Starting Sun06/11/19 at 0918, Until Discontinu ed, Routine, Intra-op [facility] balanced salt irrig soln comb1 (BSS PLUS) ophthalmic solution 500 mL bag 06-11 14:18: 00 Yes PRN, Starting Sun06/11/19 at 0918, Until Discontinu ed, Routine, Intra-op [facility] phenylephri ne (AMY-SYNEPH RINE) 2.5 % ophthalmic drops 1 Drop 06-11 14:00: 00 06-11 13:34 :00 No 1[drp] 1 Drop, Right Eye, Q10M, 3 doses, First dose on Sun06/11/19 at 0900, Last dose on Sun06/11/19 at 0920, Routine, DSU Pre-op [facility] cyclopentol ate (CYCLOGYL) 1 % ophthalmic drops 1 Drop 06-11 14:00: 00 06-11 13:35 :00 No 1[drp] 1 Drop, Right Eye, Q10M, 3 doses, First dose on Sun06/11/19 at 0900, Last dose on Sun06/11/19 at 0920, Routine, [facility] t[facility] (MYD[facility]ACYL[facility] 1 % ophthalmic drops 1 Drop 06-11 14:00: 00 06-11 13:34 :00 No 1[drp] 1 Drop, Right Eye, Q10M, 3 doses, First dose on Sun06/11/19 at 0900, Last dose on Sun06/11/19 at 0920, Routine, DSU [facility] ketorolac (ACULAR) 0.5 % ophthalmic solution 1 Drop 06-11 14:00: 00 06-11 13:34 :00 No 1[drp] 1 Drop, Right Eye, Q10M, 3 doses, First dose on Sun06/11/19 at 0900, Last dose on Sun06/11/19 at 0920, Routine, DSU Pre-op
Reason for Non-Formul yeny Use: SPECIFIC INDICATION FOR NONFORMULA RY PRODUCT
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 Non-formul yeny medication : DIEGO GERARD [facility] NaCl 0.9% (NS) IV infusion 500 mL 06-11 13:15: 00 Yes 500mL at 20 mL/hr, IV Infusion, CONTINUOUS , Starting Sun06/11/19 at 0815, Until Discontinu ed, Routine, DSU Pre-op [facility] Easy Touch Alcohol Prep Pads USE TO TEST BLOOD GLUCOSE ONCE DAILY Easy Touch Alcohol Prep Pads USE TO TEST BLOOD GLUCOSE ONCE DAILY No Easy Touch Alcohol Prep Pads USE TO TEST BLOOD GLUCOSE ONCE DAILY [facility] gemfibrozil 600 mg tablet TAKE 1 TABLET BY MOUTH TWICE DAILY gemfibrozil 600 mg tablet TAKE 1 TABLET BY MOUTH TWICE DAILY No gemfibrozi l 600 mg tablet TAKE 1 TABLET BY MOUTH TWICE DAILY [facility] glyburide 5 mg-metformi n 500 mg tablet TAKE 1 TABLET BY MOUTH TWICE DAILY FOR DIABETES glyburide 5 mg-metformi n 500 mg tablet TAKE 1 TABLET BY MOUTH TWICE DAILY FOR DIABETES No glyburide 5 mg-metform in 500 mg tablet TAKE 1 TABLET BY MOUTH TWICE DAILY FOR DIABETES [facility] lancing device USE WITH LANCETS TO TEST BLOOD GLUCOSE lancing device USE WITH LANCETS TO TEST BLOOD GLUCOSE No lancing device USE WITH LANCETS TO TEST BLOOD GLUCOSE [facility] OneTouch Ultra Control solution USE TO CALIBRATE METER OneTouch Ultra Control solution USE TO CALIBRATE METER No OneTouch Ultra Control solution USE TO CALIBRATE METER [facility] OneTouch Ultra Test strips USE TO TEST BLOOD GLUCOSE ONCE DAILY OneTouch Ultra Test strips USE TO TEST BLOOD GLUCOSE ONCE DAILY No OneTouch Ultra Test strips USE TO TEST BLOOD GLUCOSE ONCE DAILY [facility] OneTouch Ultra2 Meter USE TO TEST BLOOD GLUCOSE OneTouch Ultra2 Meter USE TO TEST BLOOD GLUCOSE No OneTouch Ultra2 Meter USE TO TEST BLOOD GLUCOSE [facility] Safety Lancets 28 gauge USE TO TEST BLOOD GLUCOSE ONCE DAILY Safety Lancets 28 gauge USE TO TEST BLOOD GLUCOSE ONCE DAILY No Safety Lancets 28 gauge USE TO TEST BLOOD GLUCOSE ONCE DAILY [facility] gemfibrozil 600 mg tablet Take 1 tablet twice a day by oral route. gemfibrozil 600 mg tablet Take 1 tablet twice a day by oral route. No 1 BID gemfibrozi l 600 mg tablet Take 1 tablet twice a day by oral route. [facility] glyburide 5 mg-metformi n 500 mg tablet Take 1 tablet twice a day by oral route. glyburide 5 mg-metformi n 500 mg tablet Take 1 tablet twice a day by oral route. No 1 BID glyburide 5 mg-metform in 500 mg tablet Take 1 tablet twice a day by oral route. [facility] Vital Signs Vital Name Observation Time Observation Value Comments S ource BP Diastolic 2023-01-16 00:00:00 72 mm[Hg] [facility] Height 2023-01-16 00:00:00 63 [in_i] [facility] BMI (Body Mass Index) 2023-01-16 00:00:00 42.7 kg/m2 [facility] BP Systolic 2023-01-16 00:00:00 118 mm[Hg] [facility] Body Weight 2023-01-16 00:00:00 3856 [oz_av] [facility] BP Diastolic 2022-02-28 00:00:00 86 mm[Hg] [facility] Height 2022-02-28 00:00:00 63 [in_i] [facility] BMI (Body Mass Index) 2022-02-28 00:00:00 41.5 kg/m2 [facility] BP Systolic 2022-02-28 00:00:00 139 mm[Hg] [facility] Body Weight 2022-02-28 00:00:00 3752 [oz_av] [facility] BP Diastolic 2021-08-02 00:00:00 75 mm[Hg] [facility] Height 2021-08-02 00:00:00 63 [in_i] [facility] BMI (Body Mass Index) 2021-08-02 00:00:00 41.6 kg/m2 [facility] BP Systolic 2021-08-02 00:00:00 137 mm[Hg] [facility] Body Weight 2021-08-02 00:00:00 3755.2 [oz_av] [facility] Height 2021-02-17 00:00:00 63 [in_i] [facility] BP Systolic 2021-02-17 00:00:00 129 mm[Hg] [facility] BP Diastolic 2021-02-17 00:00:00 82 mm[Hg] [facility] BP Diastolic 2020-11-16 00:00:00 59 mm[Hg] [facility] Height 2020-11-16 00:00:00 63 [in_i] [facility] BMI (Body Mass Index) 2020-11-16 00:00:00 45.4 kg/m2 [facility] BP Systolic 2020-11-16 00:00:00 159 mm[Hg] [facility] Body Weight 2020-11-16 00:00:00 4104 [oz_av] [facility] BP Diastolic 2020-08-03 00:00:00 60 mm[Hg] [facility] Height 2020-08-03 00:00:00 63 [in_i] [facility] BMI (Body Mass Index) 2020-08-03 00:00:00 48.4 kg/m2 [facility] BP Systolic 2020-08-03 00:00:00 125 mm[Hg] [facility] Body Weight 2020-08-03 00:00:00 4374 [oz_av] [facility] BP Diastolic 2019-11-25 00:00:00 88 mm[Hg] [facility] Height 2019-11-25 00:00:00 63 [in_i] [facility] BMI (Body Mass Index) 2019-11-25 00:00:00 46.1 kg/m2 [facility] BP Systolic 2019-11-25 00:00:00 159 mm[Hg] [facility] Body Weight 2019-11-25 00:00:00 4160 [oz_av] [facility] BP Diastolic 2019-09-08 00:00:00 80 mm[Hg] [facility] Height 2019-09-08 00:00:00 63 [in_i] [facility] BP Systolic 2019-09-08 00:00:00 163 mm[Hg] [facility] Respiratory rate 2019-06-11 15:19:00 18 /min [facility] Oxygen saturation in Arterial blood by Pulse oximetry 2019-06-11 15:19:00 94 /min [facility] Systolic blood pressure 2019-06-11 15:19:00 131 mm[Hg] [facility] Diastolic blood pressure 2019-06-11 15:19:00 70 mm[Hg] [facility] Heart rate 2019-06-11 15:19:00 69 /min [facility] Body temperature 2019-06-11 15:19:00 36.67 Zoe [facility] Body height 2019-06-10 13:00:00 160 cm [facility] Body weight 2019-06-10 13:00:00 122.471 kg [facility] BMI 2019-06-10 13:00:00 47.83 kg/m2 [facility] Respiratory rate 2019-06-11 15:19:00 18 /min [facility] Oxygen saturation in Arterial blood by Pulse oximetry 2019-06-11 15:19:00 94 /min [facility] Systolic blood pressure 2019-06-11 15:19:00 131 mm[Hg] [facility] Diastolic blood pressure 2019-06-11 15:19:00 70 mm[Hg] [facility] Heart rate 2019-06-11 15:19:00 69 /min [facility] Body temperature 2019-06-11 15:19:00 36.67 Zoe [facility] Body height 2019-06-10 13:00:00 160 cm [facility] Body weight 2019-06-10 13:00:00 122.471 kg [facility] BMI 2019-06-10 13:00:00 47.83 kg/m2 [facility] BP Diastolic 2019-04-07 00:00:00 70 mm[Hg] [facility] Height 2019-04-07 00:00:00 63 [in_i] [facility] BMI (Body Mass Index) 2019-04-07 00:00:00 48 kg/m2 [facility] BP Systolic 2019-04-07 00:00:00 124 mm[Hg] [facility] Body Weight 2019-04-07 00:00:00 4336 [oz_av] [facility] BP Diastolic 2019-02-27 00:00:00 69 mm[Hg] [facility] Height 2019-02-27 00:00:00 63 [in_i] [facility] BP Systolic 2019-02-27 00:00:00 131 mm[Hg] [facility] BP Diastolic 2018-10-07 00:00:00 83 mm[Hg] [facility] Height 2018-10-07 00:00:00 63 [in_i] [facility] BMI (Body Mass Index) 2018-10-07 00:00:00 48.2 kg/m2 [facility] BP Systolic 2018-10-07 00:00:00 148 mm[Hg] [facility] Body Weight 2018-10-07 00:00:00 4352 [oz_av] [facility] Procedures Procedure Date / Time Performed Performing Clinician Source unlisted imaging order 2019-11-25 00:00:00 [facility] DAY SURGERY - ADC 2019-06-11 05:01:00 Doctor Sheri ssigned, [place] [facility] Cataract Surgery Complex 2019-06-11 00:00:[address] [facility] CONSENT/REFUSAL FOR DIAGNOSIS AND TREATMENT 2019-06-04 21:49:49 Doctor Unassigned, [place] [facility] ASSIGNMENT OF BENEFITS 2019-06-04 21:49:32 Docto r Unassigned, [place] [facility] NOTICE OF PRIVACY PRACTICES 2019-06-04 21:49:14 Doctor Unassigned, [place] [facility] CONSENT/REFUSAL FOR DIAGNOSIS AND TREATMENT 2019-06-04 21:48:56 Doctor Unassigned, [place] [facility] ASSIGNMENT OF BENEFITS 2019-06-04 21:48:37 Docto r Unassigned, [place] [facility] PHYSICIAN ORDERS 2019-06-04 05:01:00 Doctor Unas signed, [place] [facility] Appendectomy [facility] Bladder Suspension [facility] Hysterectomy [facility] Anesth Tubal Ligation [facility] Lap Cholecystectomy [facility] Cervical Laminoplsty 2/> Seg [facility] Dental Surgical Procedure [facility] Procedure on Neck [facility] Appendectomy [facility] Total Hysterectomy [facility] Cholecystectomy [facility] Ligation of Fallopian Tube [facility] Plan of Care Planned Activity Planned Date Details Comments Source Diagnostic Test Pending 2023-01-16 00:00:00 CMP, serum or plasma [code = CMP, serum or plasma] [facility] [place] Diagnostic Test Pending 2023-01-16 00:00:00 CBC w/ auto diff [code = CBC w/ auto diff] [facility] Diagnostic Test Pending 2023-01-16 00:00:00 HbA1c (hemoglobin A1c), blood [code = HbA1c (hemoglobin A1c), blood] [facility] Diagnostic Test Pending 2023-01-16 00:00:00 TSH, serum or plasma [code = TSH, serum or plasma] [facility] Encounters Start Date/Time End Date/Time Encounter Type Admission Type Attending Clinicians Care Facility Care Department Encounter ID Source 2023-07-09 11:15:00 2023-07-09 11:15:00 Outpatient [facility] [id number] Urmila Aldana 2023-06-11 15:30:00 2023-06-11 15:30:00 Outpatient [facility] [id number] Urmila Aldana 2023-03-05 00:00:00 2023-03-05 00:00:00 Outpatient [facility] [id number] [place] [facility] 2023-03-05 00:00:00 2023-03-05 00:00:00 Outpatient [facility] [id number] [place] [facility] 2023-03-05 00:00:00 2023-03-05 00:00:00 Outpatient [facility] [id number] [place] [facility] 2023-01-18 00:00:00 2023-01-18 00:00:00 Outpatient [facility] [id number] [place] [facility] 2023-01-16 00:00:00 2023-01-16 00:00:00 Outpatient [facility] [id number] [place] [facility] 2023-01-16 00:00:00 2023-01-16 00:00:00 Devin Gaspar, DO: [facility] [address] [place], [facility] [place] [address] , Ph. [facility], DR. GASPAR [id number] [place] [facility] 2023-01-15 00:00:00 2023-01-15 00:00:00 Outpatient [facility] [id number] [place] [facility] 2022-05-16 00:00:00 2022-05-16 00:00:00 Outpatient [facility] [id number] [facility] 2022-02-28 00:00:00 2022-02-28 00:00:00 Isidro Kiser MD: [address] [place] [address] [address], [place] [address] , Ph. Yolande [facility] [id number] 517 [facility] 2021-08-02 00:00:00 2021-08-02 00:00:00 Isidro Kiser MD: [address], [place] [address] , Ph. [facility] [id number] [facility] 2021-02-17 00:00:00 2021-02-17 00:00:00 Isidro Kiser MD: [address], [place] [address] , Ph. [facility] [id number]- [id number] [facility] 2021-02-16 11:41:00 2021-02-16 11:41:00 Outpatient A_Byrd [facility] MM [id number] [facility] 2020-11-16 00:00:00 2020-11-16 00:00:00 Isidro Kiser MD: [address] [facility] [address], [place] [address] , Ph. [facility] [id number] [facility] 2020-11-15 04:28:00 2020-11-15 04:28:00 Outpatient A_Byrd [facility] MM [id number] [facility] 2020-10-26 10:27:00 2020-10-26 10:27:00 Outpatient [facility] MM MM [id number] [facility] 2020-08-03 00:00:00 2020-08-03 00:00:00 Isidro Kiser MD: [address] [facility] [address], [place] [address] , Ph. [facility] [id number] [facility] 2019-12-24 11:03:00 2019-12-24 11:03:00 Outpatient A_Byrd [facility]G MMG [id number] [facility] 2019-11-25 00:00:00 2019-11-25 00:00:00 Isidro Kiser MD: [address] [facility] [address], [place] [address] , Ph. A_Byshawn [facility] 211 [facility] 2019-10-11 03:37:00 2019-10-11 03:37:00 Outpatient A_Byshawn [facility] [id number] [facility] 2019-09-08 00:00:00 2019-09-08 00:00:00 Isidro Kiser MD: [address] [facility] [address], [place] [address] , Ph. [facility] 125 [facility] 2019-06-11 07:40:00 2019-06-11 10:40:00 Hospital Encounter HollenbergDiego [facility] [id number] 2019-06-11 07:40:00 2019-06-11 10:40:00 Hospital Encounter [facility] [id number] [facility] 2019-06-11 00:00:00 2019-06-11 00:00:00 Orders Only Doctor Unassigned, [place] [id number] 2019-06-11 00:00:00 2019-06-11 00:00:00 Orders Only Doctor Unassigned, [place] [id number] [facility] 2019-06-04 16:51:56 2019-06-04 17:06:56 Toll Line Mechanic Visit 1, Adc Lab [facility] [id number] 2019-06-04 16:51:56 2019-06-04 17:06:56 Toll Line Mechanic Visit 1, Adc Lab Diego Gerard [facility] [id number] [facility] 2019-04-07 00:00:00 2019-04-07 00:00:00 Isidro Kiser MD: [address], [place] [address] , Ph. [facility] [phone]- [phone] [facility] 2019-02-27 00:00:00 2019-02-27 00:00:00 Isidro Kiser MD: [address], [address], [place] [address] , Ph. [facility] [id number] 516 [facility] 2018-10-07 00:00:00 2018-10-07 00:00:00 Isidro Kiser MD: [address], [address], [place] [address] , Ph. [facility] [phone] 224 [facility]
--- NOTE | 2024-03-17 19:55 | RAD REPORT ---
EXAM DESCRIPTION: [facility] Single View03/17/2024 7:34 pm CLINICAL HISTORY: ABDOMINAL DISTENTION COMPARISON: CHEST PA AND LAT 2 VIEW dated 10/16/2009; CHEST SINGLE VIEW dated 04/23/2008 TECHNIQUE: Portable AP view of the chest. FINDINGS: The lungs are clear. No pneumothorax or effusion. The cardiomediastinal contours are unre markable. IMPRESSION: No acute cardiopulmonary process.
[2024-03-17] MEDS ORDERED: MORPHINE 4 MG/ML SYR ONE (22:03)
[2024-03-17] MEDS ORDERED: FAMOTIDINE 20 MG/2 ML VIAL IV ONE (22:03)
[2024-03-17] MEDS ORDERED: ONDANSETRON 4 MG/2 ML VIAL ONE (22:03)
--- NOTE | 2024-03-17 22:37 | RAD REPORT ---
EXAM DESCRIPTION: CT - Abdomen Pelvis W Contrast - 03/17/2024 9:52 pm CLINICAL HISTORY: ABD DISTENTION COMPARISON: No comparisons TECHNIQUE: Thin cut axial CT imaging of the abdomen and pelvis was performed following intravenous a dministration of 85 mL Isovue 300. Multiplanar reformats were generated and reviewed. All CT scans are performed using dose optimization technique as appropriate and may include automated exposure control or mA/KV adjustment according to patient size. FINDINGS: No suspicious findings in the lung bases. The liver, spleen, adrenal glands, and pancreas show no suspicious findings. Gallbladder was surgical ly removed. Patchy cortical hypoattenuation is seen along the posterior aspect of the right kidney. Asymmetric ri ght perinephric fat stranding. Few radiopaque calculi along the right lower and interpolar regions, n ot exceeding 3 mm. No hydronephrosis or suspicious renal mass. No dilated bowel loops or bowel wall thickening. No free air, free fluid or inflammatory stranding. D iastasis recti. The umbilical hernias containing fat. No mass or bulky lymphadenopathy. The urinary b ladder is decompressed limiting evaluation. No suspicious bony findings. IMPRESSION: Findings suggesting right inguinal pyelonephritis. No evidence of obstruction or abscess formation. Nonobstructing right renal calculi not exceeding 3 mm. Other incidental findings as above. The findings were communicated to Jose Ramon Valadez on 03/17/2024 at 22:20 hours.
[2024-03-17 22:46] LABS: PT Prothrombin Time 15.8 SECONDS (9.5-12.5); PTT, Activated Partial Thromb 37.4 SECONDS (24.3-36.9); Protime INR 1.45
[2024-03-17 22:48] LABS: Absolute Lymphocytes (CBC) 0.7 K/uL (0.7-4.9); Absolute Monocytes 0.8 K/uL (0.1-1.3); Basophils % 0.1 % (0-1.3); Hematocrit 38.9 % (36.0-45.0); Hemoglobin 12.9 g/dL (12.0-15.0); Lymphocytes % 5.5 % (15.3-44.8); MCH 29.1 pg (27.0-35.0); MCHC 33.2 g/dL (32.0-36.0); MCV 87.8 fL (80-100); MPV 8.2 fL (7.6-11.3); Monocytes % 6.1 % (3.3-12.3); Neutrophils % 88.3 % (41.7-73.7); Platelets 286 thou/uL (152-406); RBC Red Blood Cell Count 4.44 M/uL (3.86-4.86); Red Cell Distribution Width 13.9 % (12.1-15.2)
[2024-03-17 22:57] LABS: Albumin 2.8 g/dL (3.4-5.0); Albumin/Globulin Ratio 0.5 (1.1-1.8); Anion Gap 14.1 mEq/L (5.0-15.0); Bilirubin Direct 0.3 mg/dL (0-0.2); Bilirubin Indirect, Calculated 0.3 mg/dL (0.2-0.8); Bilirubin Total 0.6 mg/dL (0.2-1.0); Globulin 5.2 g/dL (2.3-3.5); Magnesium 1.9 mg/dL (1.6-2.4); Potassium 3.1 mEq/L (3.5-5.1); Troponin High Sensitivity 10.8 pg/mL (<58.9)
[2024-03-17] MEDS ORDERED: CEFTRIAXONE 1000 MG/VIAL ONE (23:48)
[2024-03-17] MEDS ORDERED: NA CHLORIDE 0.9% 50 ML ONE (23:48)
[2024-03-17] MEDS ORDERED: NA CHLORIDE 0.9% 1,000 ML ONE (23:49)
--- NOTE | 2024-03-17 23:54 | EDPHYS ---
Physician Documentation [facility] Name: Angela Mccain Age: 73 yrs Sex: Female : 1950 Arrival Date: 03/17/2024 Time: 18:12 Bed 13 Private MD: ED Physician Kelsi Araiza HPI: 03/17 18:45 This 73 yrs old Female presents to ER via Wheelchair with complaints of Decreased cp Appetite, Fever, Abdominal Pain. 18:45 The patient presents with abdominal pain right side of abdomen. cp 18:45 Onset: The symptoms/episode began/occurred 4 day(s) ago. cp 18:45 Associated signs and symptoms: Pertinent positives: nausea, Pertinent negatives: blood cp in stools, fever, vomiting. Severity of pain: in the emergency department the pain is unchanged despite home interventions. Historical: - Allergies: 18:29 Vaccines; bp - PMHx: 18:29 diabetes mellitus; Hypercholesterolemia; bp - Immunization history:: Adult Immunizations up to date. - Infectious Disease History:: Denies. - Social history:: Smoking status: unknown. ROS: 18:50 Constitutional: Negative for body aches, chills, fever, poor PO intake, cp 18:50 Eyes: Negative for injury, pain, redness, and discharge, cp 18:50 ENT: Negative for drainage from ear(s), ear pain, sore throat, difficulty swallowing, difficulty handling secretions, 18:50 Cardiovascular: Negative for chest pain, palpitations, 18:50 Respiratory: Negative for cough, shortness of breath, wheezing, 18:50 Abdomen/GI: Positive for abdominal pain, nausea, Negative for vomiting, diarrhea, constipation, anorexia, black/tarry stool, rectal bleeding, 18:50 Neuro: Negative for altered mental status, dizziness, headache, weakness, 18:50 All other systems are negative, Exam: 18:55 Constitutional: The patient appears in no acute distress, alert, awake, non-toxic, well cp developed, well nourished, obese, uncomfortable, 18:55 Head/Face: Normocephalic, atraumatic. cp 18:55 Eyes: Periorbital structures: appear normal, Conjunctiva: normal, no exudate, no injection, Sclera: no appreciated abnormality, Lids and lashes: appear normal, bilaterally, 18:55 ENT: External ear(s): are unremarkable, Nose: is normal, Mouth: Lips: moist, Oral mucosa: pink and intact, moist, Posterior pharynx: is normal, airway is patent, no erythema, no exudate, 18:55 Chest/axilla: Inspection: normal, 18:55 Cardiovascular: Rate: tachycardic, Rhythm: regular, Edema: is not appreciated, JVD: is not appreciated, 18:55 Respiratory: the patient does not display signs of respiratory distress, Respirations: normal, no use of accessory muscles, no retractions, labored breathing, is not present, Breath sounds: are clear throughout, no decreased breath sounds, no stridor, no wheezing, 18:55 Abdomen/GI: Inspection: obese Bowel sounds: active, Palpation: soft, in all quadrants, moderate abdominal tenderness, in the anterior aspect of right lateral abdomen and right lower quadrant, rebound tenderness, is not appreciated, involuntary guarding, is not appreciated, 18:55 Skin: no rash present. 18:55 Neuro: Orientation: to person, place \T\ time. Mentation: is normal, Motor: moves all fours, no focal deficits, 21:02 ECG was reviewed by the Attending Physician. Vital Signs: 18:29 BP 129 / 70; Pulse 124; Resp 16; Temp 98; Pulse Ox 100% ; bp 22:00 BP 124 / 68; Pulse 95; Resp 18; Pulse Ox 94% on R/A; cm10 23:00 BP 105 / 44; Pulse 98; Resp 18; Pulse Ox 95% on R/A; cm10 06/04 00:00 BP 108 / 51; Pulse 101; Resp 18; Pulse Ox 96% on R/A; cm10 01:00 BP 102 / 62; Pulse 98; Resp 18; Pulse Ox 93% on R/A; cm10 02:00 BP 105 / 42; Pulse 95; Resp 18; Pulse Ox 97% on R/A; cm10 MDM: 06/03 18:26 Patient medically screened. 23:55 Data reviewed: vital signs, nurses notes, lab test result(s), radiologic studies, CT cp scan. 23:55 Differential diagnosis: bowel obstruction, non-specific abd pain, pancreatitis, cp Pyelonephritis, Ureterolithiasis, urinary tract infection, sepsis. Management of patient was discussed with the following: Hospitalist: DR Carty will admit after discussion. I considered the following discharge prescriptions or medication management in the emergency department Medications were administered in the Emergency Department. See DEC. 03/18 00:35 ED course: sepsis reevaluation complete. cp 03/17 18:37 Order name: Basic Metabolic Panel; Complete Time: 23:46 cp 03/17 23:46 Interpretation: Normal except: NA 128; K 3.1; CL 92; GLUC 121; BUN 27; CRE 1.27; GFR 45.cp 03/17 18:37 Order name: CBC with Diff cp 03/17 23:47 Interpretation: Normal except: WBC 12.40; SADIQ% 88.3; LYM% 5.5; NEUT A 11.0. cp 03/17 18:37 Order name: LFT's; Complete Time: 23:46 cp 03/17 23:47 Interpretation: Normal except: BILID 0.3; ALB 2.8; GLOB 5.2; A/G 0.5. cp 03/17 18:37 Order name: Magnesium; Complete Time: 23:46 cp 03/17 18:37 Order name: NT PRO-BNP; Complete Time: 23:46 cp 03/17 18:37 Order name: PT-INR; Complete Time: 23:46 cp 03/17 18:37 Order name: Troponin HS; Complete Time: 23:46 cp 03/17 18:37 Order name: Urinalysis W/Microscopic cp 03/17 18:37 Order name: Lipase; Complete Time: 23:46 cp 03/17 18:37 Order name: Blood Culture Adult (2) cp 03/17 18:37 Order name: Lactate w/ 2H reflex if indic.; Complete Time: 23:46 cp 03/17 18:37 Order name: Ptt, Activated; Complete Time: 23:46 cp 03/17 22:53 Order name: Manual Differential EDMS 03/18 00:23 Order name: Urine Culture EDMS 03/18 01:07 Order name: CBC with Automated Diff EDMS 03/18 01:07 Order name: CBC with Automated Diff EDMS 03/18 01:07 Order name: CBC with Automated Diff EDMS 03/18 01:07 Order name: Comprehensive Metabolic Panel EDMS 03/18 01:07 Order name: Comprehensive Metabolic Panel EDMS 03/18 01:07 Order name: Comprehensive Metabolic Panel EDMS 03/18 01:07 Order name: Troponin High Sensitivity EDMS 03/18 01:07 Order name: Troponin High Sensitivity EDMS 03/18 01:49 Order name: CREATININE WHOLE BLOOD EDMS 03/17 18:37 Order name: XRAY Chest (1 view); Complete Time: 21:50 cp / 19:31 Order name: Abdomen ; Complete Time: 22:42 EDMS 03/17 18:37 Order name: EKG; Complete Time: 18:38 cp 03/18 01:12 Order name: CONS Physician Consult EDMS 03/17 18:37 Order name: Cardiac monitoring; Complete Time: 22:30 cp 03/17 18:37 Order name: EKG - Nurse/Tech; Complete Time: 21:02 cp 03/17 18:37 Order name: IV Saline Lock; Complete Time: 21:47 cp 03/17 18:37 Order name: Labs collected and sent; Complete Time: 21:47 cp 03/17 18:37 Order name: O2 Per Protocol; Complete Time: 22:30 cp 03/17 18:37 Order name: O2 Sat Monitoring; Complete Time: 22:30 cp 03/17 18:37 Order name: IV Saline Lock - Large Bore; Complete Time: 21:47 cp 03/17 18:37 Order name: Vital Signs; Complete Time: 22:30 cp 03 21:58 Order name: Misc. Order: recollect labs; Complete Time: 22:30 km8 EC/03 21:02 Rate is 116 beats/min. Rhythm is regular. NH interval is normal. QRS interval is cp prolonged at 104 msec. QT interval is normal. T waves are Inverted in lead aVR. Interpreted by me. Reviewed by me. Administered Medications: 22:30 Drug: Ondansetron IVP 4 mg IVP once; over 2 minutes Route: IVP; Site: right forearm; cm10 03/18 00:22 Follow up: Response: No adverse reaction [facility] 03/17 22:30 Drug: Famotidine IVP 20 mg IVP once; dilute with 10 mL 0.9% NaCl; give over 2 minutes cm10 Route: IVP; Site: right forearm; 03/18 00:22 Follow up: Response: No adverse reaction [facility] 03/17 22:30 Drug: morphine IVP or IV 4 mg IVP once over 4 mins Route: IVP; Infused Over: 4 mins; cm10 Site: right forearm; 03/18 00:21 Follow up: Response: No adverse reaction cm10 03/17 23:49 CANCELLED (Physician Discretion): ns 0.9% 500 ml IV at bolus once cp 23:50 Drug: Rocephin IV 1 grams IV at calculated rate once; Given slow IV push per pharmacy cm10 instructions Route: IV; Rate: calculated rate; Site: left forearm; 03/18 00:21 Follow up: Response: No adverse reaction; IV Status: Completed infusion; IV Intake: [id number] 00:03 CANCELLED (Other Intervention Used): ns 0.9% 1000 ml IV at 125 ml/hr once cm10 00:03 Drug: NS 0.9% IV 1000 ml IV at 1 bolus Per protocol; 250 ml bolus, then 75 ml/hr Route: cm10 IV; Rate: 1 bolus; Site: left forearm; 00:21 Follow up: IV SiteChange: right forearm; IV SiteChange Reason: Patient removed cm10 02:30 Follow up: IV Status: Infusion continued upon admission cm10 02:03 Drug: Potassium PO Effervescent Tablet 50 mEq PO once; dissolve in 4 ounces of water or cm10 juice Route: PO; 02:30 Follow up: Response: No adverse reaction cm10 Disposition Summary: 03/17/24 23:53 Hospitalization Ordered Notes: Hospitalization Status: Inpatient Admission cp Provider: Tino Carty cp [facility] cp Condition: Stable cp Problem: new cp Symptoms: have improved cp Bed/Room Type: Standard Room Assignment: 217(03/18/24 01:52) rv1 Diagnosis - Pyelonephritis acute cp - Sepsis, unspecified organism cp Forms: - Medication Reconciliation Form cp - SBAR form cp - Leadership Thank You Letter cp Signatures: Dispatcher [employer] EDMS Malick Penn PA PA cp Evert Antonio RN RN Tori Wray rv1 Maggy Reich RN RN cm10 Mary Kate Joseph RN RN km8 Corrections: (The following items were deleted from the chart) 03/17 18:38 18:38 BASIC METABOLIC PANEL+C.LAB.BRZ ordered. EDMS EDMS 18:38 18:38 CBC+H.LAB.BRZ ordered. EDMS EDMS 18:38 18:38 HEPATIC FUNCTION+C.LAB.BRZ ordered. EDMS EDMS 18:38 18:38 MAGNESIUM+C.LAB.BRZ ordered. EDMS EDMS 18:38 18:38 PROBNP+C.LAB.BRZ ordered. EDMS EDMS 18:38 18:38 PROTIME (+INR)+COAG.LAB.BRZ ordered. EDMS EDMS 18:38 18:38 Troponin High Sensitivity+C.LAB.BRZ ordered. EDMS EDMS 18:38 18:38 Urinalysis W/Microscopic+U.LAB.BRZ ordered. EDMS EDMS 18:38 18:38 LIPASE+C.LAB.BRZ ordered. EDMS EDMS 18:38 18:38 BLOOD CULTURE*+BA.LAB.BRZ ordered. EDMS EDMS 18:38 18:38 LACTATE+C.LAB.BRZ ordered. EDMS EDMS 18:38 18:38 PTT, ACTIVATED+COAG.LAB.BRZ ordered. EDMS EDMS 19:29 18:38 Abdomen Pelvis W Con+CT.RAD.BRZ ordered. EDMS EDMS 23:49 23:49 NS 0.9% IV 500 ml IV at bolus once ordered. cp cp 03/18 00:03 03/17 23:46 NS 0.9% IV 1000 ml IV at 125 ml/hr once ordered. cm10 cm10 03/18 01:52 03/17 23:53 cp rv1
--- NOTE | 2024-03-17 23:54 | ER ---
Nurse's Notes [facility] Name: Angela Mccain Age: 73 yrs Sex: Female : 1950 Arrival Date: 03/17/2024 Time: 18:12 Bed 13 Private MD: Diagnosis: Pyelonephritis acute;Sepsis, unspecified organism Presentation: 03/17 18:29 Chief complaint: Patient states: RLQ PAIN x4 DAYS AFTER CONSTIPATION. Coronavirus bp screen: At this time, the client does not indicate any symptoms associated with coronavirus-19. Ebola Screen: No symptoms or risks identified at this time. Initial Sepsis Screen: Does the patient meet any 2 criteria? HR > 90 bpm. No. Patient's initial sepsis screen is negative. Does the patient have a suspected source of infection? No. Patient's initial sepsis screen is negative. Risk Assessment: Do you want to hurt yourself or someone else? Patient reports no desire to harm self or others. Onset of symptoms is unknown. 18:29 Method Of Arrival: Wheelchair bp 18:29 Acuity: RADHA 3 bp Triage Assessment: 18:29 General: Appears in no apparent distress. uncomfortable, obese, unkempt, Behavior is bp cooperative, appropriate for age, anxious. Pain: Complains of pain in abdomen. GI: Reports upper abdominal pain. Historical: - Allergies: 18:29 Vaccines; bp - PMHx: 18:29 diabetes mellitus; Hypercholesterolemia; bp - Immunization history:: Adult Immunizations up to date. - Infectious Disease History:: Denies. - Social history:: Smoking status: unknown. Screenin:[address] [facility] ED Fall Risk Assessment (Adult) History of falling in the last 3 months, bp including since admission No falls in past 3 months (0 pts). Abuse screen: Denies threats or abuse. Denies injuries from another. Nutritional screening: No deficits noted. Tuberculosis screening: No symptoms or risk factors identified. 22:[address] [facility] ED Fall Risk Assessment (Adult) History of falling in the last 3 months, cm10 including since admission No falls in past 3 months (0 pts) Confusion or Disorientation No (0 pts) Intoxicated or Sedated No (0 pts) Impaired Gait Yes (1 pt) Mobility Assist Device Used Yes (1 pt) Altered Elimination Yes (1 pt) Score/Fall Risk Level 3 or more points = High Risk Oriented to surroundings, Maintained a safe environment, Hourly rounding (assess needs \T\ fall precautionary measures) done. Assessment: 22:00 General: Appears in no apparent distress. uncomfortable, Behavior is calm, cooperative. cm10 Pain: Complains of pain in abdomen. Neuro: No deficits noted. Level of Consciousness is awake, alert, obeys commands, Oriented to person, place, time, situation, Appropriate for age. Respiratory: No deficits noted. Airway is patent Respiratory effort is even, unlabored, Respiratory pattern is regular, symmetrical. GI: Abdomen is obese, Bowel sounds Abd is soft Reports lower abdominal pain, upper abdominal pain. 23:30 Reassessment: Patient appears in no apparent distress at this time. No changes from cm10 previously documented assessment. Patient and/or family updated on plan of care and expected duration. Pain level reassessed. Patient is alert, oriented x 3, equal unlabored respirations, skin warm/dry/pink. 03/18 00:30 Reassessment: Patient appears in no apparent distress at this time. No changes from cm10 previously documented assessment. Patient and/or family updated on plan of care and expected duration. Pain level reassessed. Patient is alert, oriented x 3, equal unlabored respirations, skin warm/dry/pink. 01:30 Reassessment: Patient appears in no apparent distress at this time. No changes from cm10 previously documented assessment. Patient and/or family updated on plan of care and expected duration. Pain level reassessed. Patient is alert, oriented x 3, equal unlabored respirations, skin warm/dry/pink. 02:27 Reassessment: Patient appears in no apparent distress at this time. No changes from cm10 previously documented assessment. Patient and/or family updated on plan of care and expected duration. Pain level reassessed. Patient is alert, oriented x 3, equal unlabored respirations, skin warm/dry/pink. 02:58 Reassessment: PT CHANGED INTO GOWN AT THIS TIME. PT STATES THAT SHE IS URINATING IN HER cm10 DIAPER. THIS NURSE ASKED PATIENT IF SHE WANTED HER BRIEF CHANGED AND PATIENT STATES THAT SHE WOULD LIKE TO CHANGE IT WHEN SHE GETS UPSTAIRS. Vital Signs: 03/17 18:29 BP 129 / 70; Pulse 124; Resp 16; Temp 98; Pulse Ox 100% ; bp 22:00 BP 124 / 68; Pulse 95; Resp 18; Pulse Ox 94% on R/A; cm10 23:00 BP 105 / 44; Pulse 98; Resp 18; Pulse Ox 95% on R/A; cm10 0604 00:00 BP 108 / 51; Pulse 101; Resp 18; Pulse Ox 96% on R/A; cm10 01:00 BP 102 / 62; Pulse 98; Resp 18; Pulse Ox 93% on R/A; cm10 02:00 BP 105 / 42; Pulse 95; Resp 18; Pulse Ox 97% on R/A; cm10 ED Course: 03/17 18:19 Patient arrived in ED. mg5 18:24 Malick Penn PA is PHCP. cp 18:24 Kelsi Araiza MD is Attending Physician. cp 18:29 Arm band placed on. bp 18:30 Triage completed. bp 18:30 Patient has correct armband on for positive identification. bp 19:36 XRAY Chest (1 view) In Process Unspecified. EDMS 21:02 EKG done, by ED staff. vk 21:40 Inserted saline lock: 20 gauge in right forearm, using aseptic technique. Blood cm10 collected. 21:40 Initial lab(s) drawn, by me, sent to lab. First set of blood cultures drawn by me. cm10 21:46 Maggy Reich, RN is Primary Nurse. cm10 21:47 Lactate w/ 2H reflex if indic. Sent. cm10 21:47 Ptt, Activated Sent. cm10 21:47 Basic Metabolic Panel Sent. cm10 21:47 CBC with Diff Sent. cm10 21:47 LFT's Sent. cm10 21:47 Magnesium Sent. cm10 21:47 NT PRO-BNP Sent. cm10 21:47 PT-INR Sent. cm10 21:47 Troponin HS Sent. cm10 21:54 Abdomen In Process Unspecified. EDMS 22:24 Lab(s) recollected, by me, sent to lab. Second set of blood cultures drawn by me. cm10 Missed attempt(s): 22 gauge in left hand. Bleeding controlled, band aid applied, catheter tip intact. 22:30 Inserted saline lock: 22 gauge in left forearm, using aseptic technique. Blood cm10 collected. 23:53 Tino Carty MD is Hospitalizing Provider. cp 03/18 00:20 IV was discontinued by the patient. cm10 02:22 Report faxed to 2nd floor at 0214, confirmation of received fax at 0215. [facility] 02:29 No provider procedures requiring assistance completed. Patient admitted, IV remains in [address] 02:30 Provided Education on: Need for admit. [facility] Administered Medications: 03/17 22:30 Drug: Ondansetron IVP 4 mg IVP once; over 2 minutes Route: IVP; Site: right forearm; [facility] 03/18 00:22 Follow up: Response: No adverse reaction [facility] 03/17 22:30 Drug: Famotidine IVP 20 mg IVP once; dilute with 10 mL 0.9% NaCl; give over 2 minutes [facility] Route: IVP; Site: right forearm; 03/18 00:22 Follow up: Response: No adverse reaction [facility] 03/17 22:30 Drug: morphine IVP or IV 4 mg IVP once over 4 mins Route: IVP; Infused Over: 4 mins; [facility] Site: right forearm; 03/18 00:21 Follow up: Response: No adverse reaction [facility] 03/17 23:49 CANCELLED (Physician Discretion): ns 0.9% 500 ml IV at bolus once 23:50 Drug: Rocephin IV 1 grams IV at calculated rate once; Given slow IV push per pharmacy cm10 instructions Route: IV; Rate: calculated rate; Site: left forearm; 03/18 00:21 Follow up: Response: No adverse reaction; IV Status: Completed infusion; IV Intake: [id number] 00:03 CANCELLED (Other Intervention Used): ns 0.9% 1000 ml IV at 125 ml/hr once [facility] 00:03 Drug: NS 0.9% IV 1000 ml IV at 1 bolus Per protocol; 250 ml bolus, then 75 ml/hr Route: cm10 IV; Rate: 1 bolus; Site: left forearm; 00:21 Follow up: IV SiteChange: right forearm; IV SiteChange Reason: Patient removed 10 02:30 Follow up: IV Status: Infusion continued upon admission [facility] 02:03 Drug: Potassium PO Effervescent Tablet 50 mEq PO once; dissolve in 4 ounces of water or cm10 juice Route: PO; 02:30 Follow up: Response: No adverse reaction [facility] Medication: 03/17 22:00 VIS not applicable for this client. 10 Intake: 03/18 00:21 IV: 50ml; Total: 50ml. cm10 Outcome: 03/17 23:53 Decision to Hospitalize by Provider. jeff 03/18 02:29 Admitted to Med/surg accompanied by nurse, via stretcher, room 207, cm10 Condition: good Instructed on the need for admit, 02:59 Patient left the ED. cm10 Signatures: Dispatcher [employer] EDMS Malick Penn PA PA cp Peltier, Brian, RN RN Maggy Harris RN RN cm10 Marisa Sanches 5 Marycruz Dawson
[2024-03-18 00:17] LABS: Sqamous Epithelial <5 /HPF (None Seen); Urine Bacteria None Seen /HPF (<20); Urine Bilirubin NEGATIVE (Negative); Urine Blood 1+ (Negative); Urine Clarity Clear (Clear); Urine Color Light-Yellow (Yellow); Urine Culture Reflex Order REFLEXED; Urine Glucose NEGATIVE (Negative); Urine Ketones 1+ (Negative); Urine Micro Reflex YN NO BILL MICROSCOPIC; Urine Nitrite NEGATIVE (Negative); Urine Protein 1+ (Negative); Urine Urobilinogen Normal (Normal); Urine WBC 20-50 /HPF (<5)
[2024-03-18 00:20] LABS: Specific Gravity > 1.030 (1.005-1.030)
[2024-03-18 00:38] LABS: Band Neutrophils 17 % (0-1); Differential Total Cells Count 100; Lymphocytes 3 % (15-42); Monocytes 5 % (0-10); Reactive Lymphocytes 1 %; Segmented Neutrophils 74 % (40-80)
[2024-03-18 00:39] LABS: Blood Morphology Comment NOT SEEN (NOT SEEN); Platelet Estimate ADEQ
[2024-03-18] MEDS ORDERED: ALBUTEROL 2.5 MG/3 ML NEB SOL NEB PRN (00:57)
[2024-03-18] MEDS ORDERED: MORPHINE 2 MG/ML SYR IV PRN (00:57)
[2024-03-18] MEDS ORDERED: ONDANSETRON 4 MG/2 ML VIAL IV PRN (00:57)
[2024-03-18] MEDS ORDERED: MORPHINE 4 MG/ML SYR IV PRN (01:04)
[2024-03-18] MEDS ORDERED: LORAZEPAM 0.5 MG TABLET PO PRN (01:04)
[2024-03-18] MEDS ORDERED: HYDRALAZINE HCL 20 MG/ML VIAL IV PRN (01:04)
--- NOTE | 2024-03-18 01:10 | P.HP ---
Certification for Inpatient Patient admitted to: Observation With expected LOS: <2 Midnights Patient will require the following post-hospital care: None Practitioner: I am a practitioner with admitting privileges, knowledge of patient current condition, hospital course, and medical plan of care. Services: Services provided to patient in accordance with Admission requirements found in Title 42 Section 412.3 of the Code of Federal Regulations Patient History Date of Service: 03/18/24 Reason for admission: Flank pain, fever History of Present Illness: 73-year-old female with history of obesity, hypertension, diabetes mellitus, who presents to the hospital today because of complaint of constipation, decreased p.o. intake, nausea, intermittent fever since the last 3 days but resolved since the last 1 day. Patient also admits to generalized malaise and fatigue. She states she normally have regular bowel movement but has not had any since the last 1 day. She admits to decreased p.o. intake since the last 3 days. She denies any dysuria, she admits to some right-sided flank pain but states pain is somewhat improved now. She seems to be more focused on the constipation since earlier today. On arrival in the ED workup, she was noted to be tachycardic at 116 but improved with gentle IV fluid to 96 now. Afebrile, blood pressure stable. Including UA shows evidence of UTI, CT of the abdomen shows right pyelonephritis, WBC elevated at 12,000, with left shift, lactic acid normal, serum sodium of 128, potassium of 3.1 and creatinine of 1.27, no previous test to compare. Allergies No Known Allergies Allergy (Verified 11/15/12 12:43) - Past Medical/Surgical History -: Hypertension -: Diabetes mellitus -: Uterine cancer -: Hysterectomy for uterine cancer -: Inguinal hernia repair -: Cholecystectomy - Social History Smoking Status: Never smoker Smoking therapy provided: No Patient receptive to therapy: No Alcohol use: No CD- Drugs: No Caffeine use: No Place of Residence: Home Review of Systems 10-point ROS is otherwise unremarkable General: Fever, Chills, Weakness, Malaise Gastrointestinal: Nausea, Constipation Genitourinary: Dysuria Physical Examination - Physical Exam General: Alert, In no apparent distress, Oriented x3, Obese HEENT: Atraumatic, Normocephalic, PERRLA Neck: Supple, 2+ carotid pulse no bruit, JVD not distended Respiratory: Clear to auscultation bilaterally, Normal air movement Cardiovascular: No edema, Regular rate/rhythm, Normal S1 S2 Gastrointestinal: Normal bowel sounds, Soft and benign, No ascites, Tenderness (mild over right flank ) Musculoskeletal: No clubbing, No swelling Neurological: Normal speech, Normal strength at 5/5 x4 extr, Sensation intact, Cranial nerves 3-12 intact - Studies Laboratory Data (last 24 hrs) 03/17/24 03/17/24 03/17/24 22:19 22:19 22:19 WBC 12.40 H Hgb 12.9 Hct 38.9 Plt Count 286 PT 15.8 H INR 1.45 APTT 37.4 H Sodium 128 L Potassium 3.1 L BUN 27 H Creatinine 1.27 H Glucose 121 H Magnesium 1.9 Total Bilirubin 0.6 AST 18 ALT 27 Alkaline Phosphatase 57 Lipase 27 Assessment and Plan - Problems (Diagnosis) (1) Pyelonephritis of right kidney Current Visit: Yes Status: Acute (2) Hyponatremia Current Visit: Yes Status: Acute (3) Acute kidney injury Current Visit: Yes Status: Acute Discharge Plan: Home - Advance Directives Does patient have a Living Will: No Does patient have a Durable POA for Healthcare: No - Code Status/Comfort Care Code Status Assessed: Yes Time Spent Managing Pts Care (In Minutes): 65
[2024-03-18] MEDS ORDERED: POTASSIUM 25 MEQ EFFERV TAB ONE (01:57)
[2024-03-18] MEDS: NS KCL 20MEQ 20 MEQ/1,000 ML BAG IV SCH (03:51)
[2024-03-18 04:00] VITALS: BMI 40.0
[2024-03-18] MEDS ORDERED: INSULIN REGULAR (HUMAN) 100 UNIT/ML SQ SCH (06:00)
[2024-03-18] MEDS: INSULIN REGULAR (HUMAN) 100 UNIT/ML SQ SCH (07:30)
[2024-03-18 09:20] LABS: Absolute Lymphocytes (CBC) 0.7 K/uL (0.7-4.9); Absolute Monocytes 0.8 K/uL (0.1-1.3); Absolute Neutrophil 7.1 K/uL (1.8-8.0); Basophils % 0.3 % (0-1.3); Eosinophils % 0.2 % (0-4.4); Hematocrit 34.7 % (36.0-45.0); Hemoglobin 12.2 g/dL (12.0-15.0); Lymphocytes % 8.7 % (15.3-44.8); MCH 30.4 pg (27.0-35.0); MCV 86.9 fL (80-100); MPV 7.9 fL (7.6-11.3); Monocytes % 8.7 % (3.3-12.3); Neutrophils % 82.1 % (41.7-73.7); Nucleated Red Blood Cells % 0.1 % (0-0); Platelets 258 thou/uL (152-406); Red Cell Distribution Width 13.4 % (12.1-15.2)
[2024-03-18 09:37] LABS: Albumin 2.5 g/dL (3.4-5.0); Albumin/Globulin Ratio 0.6 (1.1-1.8); Anion Gap 8.3 mEq/L (5.0-15.0); Bilirubin Total 0.5 mg/dL (0.2-1.0); Globulin 4.5 g/dL (2.3-3.5); Potassium 3.3 mEq/L (3.5-5.1)
[2024-03-18] MEDS: FAMOTIDINE 20 MG TAB PO SCH (09:59)
[2024-03-18] MEDS: CEFEPIME 2 GM in NA CHLORIDE 0.9% 100 ML IV SCH (09:59)
[2024-03-18] MEDS: ENOXAPARIN 40 MG/0.4 ML SQ SCH (10:00)
[2024-03-18] MEDS: NA CHLORIDE 0.9% 1,000 ML IV ONE (11:23)
[2024-03-18] MEDS: POTASSIUM CL 40 MEQ in NA CHLORIDE 0.9% 500 ML IV SCH (11:23)
[2024-03-18] MEDS: MAGNESIUM SULFATE 1 gm IVPB 1 GM/100 ML BAG IV ONE (11:24)
--- NOTE | 2024-03-18 13:18 | EKG ---
Test Date: 2024-03-17 Test Time: 20:58:04 Retail Selling Specialist: BERNABE MEASUREMENT RESULTS: Intervals: Rate: 116 OK: 152 QRSD: 104 QT: 340 QTc: 472 [place]: P: 49 OK: 152 QRS: -71 T: 60 INTERPRETIVE STATEMENTS: Sinus tachycardia Left axis deviation Inferior infarct, age undetermined Possible Anterolateral infarct, age undetermined Abnormal ECG Compared to ECG 04/23/2008 09:20:26 Ventricular premature complex(es) no longer present Right bundle-branch block no longer present Myocardial infarct finding still present Electronically Signed On 03-18-24 13:16:36 CDT by Ryan Caldwell
--- NOTE | 2024-03-18 13:22 | CON ---
Date of Consultation: 03/18/2024 Reason For Consultation: Elevated BUN and creatinine, fluid management, UTI. History Of Present Illness: This is a pleasant 73-year-old female with significant past medical history of obesity, hypertension, diabetes, diagnosed 15 years ago, complicated with neuropathy, no retinopathy, the patient came to the hospital with decreased intake, weakness, nausea without any vomiting, found to have fever, also primary workup show elevation in BUN and creatinine, obstructive uropathy, has been ruled out with the finding on the CT with elevation in BUN and creatinine. For that reason, we have been consulted. The patient admit that she has been taking ibuprofen 2 to 3 tablets in a weekly basis. The patient denied any other medication. CT was done in the hospital with IV contrast shows some nephrolithiasis without any hydronephrosis and also shows stranding on the urine with picture of pyelonephritis. Past Medical History: Includes: 1. Hypertension. 2. Hyperlipidemia. 3. 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 Past Surgical History: Include uterine cancer removal, hysterectomy, inguinal hernia repair, cholecystectomy. Social History: Denied smoking, denied drinking, denied drugs abuse. Family History: Positive for hypertension. Review of Systems: Head and Neck: Has headache. GI: Has nausea, no vomiting. : Has polyuria, dysuria. HELIARC WELDER: No vaginal discharge. Respiratory: No shortness of breath. Cardiovascular: No chest pain. Endocrine: No polydipsia. Skin: No rash. Neuro: Has neuropathy. Musculoskeletal: Has some joint pain. Physical Examination: General: When I saw the patient, the patient lying in bed. Vital Signs: Blood pressure 146/56, pulse of 93, afebrile. Reviewing the record. Yesterday, blood pressure was down to 105. Chest: Clear to auscultation. Heart: S1, S2. Regular. Abdomen: Soft, nontender. No guarding or rebound. Extremities: No edema. Neurologic: Alert, oriented x3. No focality. Laboratory Data: Upon presentation to the hospital; WBC 12.4, hemoglobin 12.9. Sodium 128, potassium 3.1, bicarb 25, BUN 27, creatinine 1.2, GFR 45, calcium 9.5, magnesium 1.9. Today lab data; sodium 130, potassium 3.3, bicarb 29, BUN 26, creatinine 1, GFR of 54, calcium 9.1. WBC 8.6, hemoglobin 12.2. Current Medications: The patient on include albuterol, Lovenox, lorazepam, Pepcid, Zofran, insulin, normal saline with KCl. Home medications include gemfibrozil, glimepiride with metformin. Assessment And Plan: 1. Acute kidney injury on chronic kidney disease secondary to poor perfusion, ATN, secondary to prerenal superimposed with toxic ATN, secondary to UTI superimposed with contrast exposure yesterday, the patient is nonoliguric, no hyperkalemia, looked to me still on the dry side. I am going to go ahead and bolus the patient with 1 L of normal saline and we will continue hydration. 2. Obstructive uropathy has been ruled out by the CT. 3. I am going to continue to monitor the patient in the next 24 to 48 hours as the patient as I mentioned expose to contrast and we will follow up. 4. Hyponatremia, depletional, will continue hydration. 5. Hypokalemia secondary to renal failure, poor intake. We will replace. 6. Hypomagnesemia, we will replace. 7. Nephrolithiasis, nonobstructing. Continue current monitor. No need for any intervention. 8. Urinary tract infection. Urine culture still pending. Continue current antibiotic. We will follow up culture. 9. Diabetes as by Primary. Thank you Dr. Carty for allowing us to participate in the care of your patient. Time spent examining the patient [id number] reviewing data lab and the radiology placing orders and discussing the case with the patient discussing the case with the steam trap worker including hospitalist and nursing staff more than 75 minutes MATTHIAS Voice ID: [id number] Report ID: [id number] SEVEN
--- NOTE | 2024-03-18 15:52 | P.PN ---
Date of Service: 03/18/24 patient seen and examined on rounds this morning. feeling about the same as this morning at time of admission maybe slight improvement of flank pain reports fever 101 at home no nausea/vomiting this morning tolerating antibiotics denies frequent/recurrent UTIs renal function improving, leukocytosis iomproving
[2024-03-18] MEDS: ACETAMINOPHEN 500 MG TAB PO PRN (17:10)
[2024-03-19 07:16] LABS: Absolute Eosinophils 0.1 K/uL (0-0.5); Absolute Lymphocytes (CBC) 0.8 K/uL (0.7-4.9); Absolute Monocytes 0.5 K/uL (0.1-1.3); Absolute Neutrophil 4.7 K/uL (1.8-8.0); Basophils % 0.3 % (0-1.3); Hematocrit 32.7 % (36.0-45.0); Hemoglobin 11.1 g/dL (12.0-15.0); Lymphocytes % 12.9 % (15.3-44.8); MCH 29.6 pg (27.0-35.0); MCV 86.9 fL (80-100); MPV 7.5 fL (7.6-11.3); Monocytes % 8.2 % (3.3-12.3); Neutrophils % 77.6 % (41.7-73.7); Platelets 246 thou/uL (152-406); RBC Red Blood Cell Count 3.76 M/uL (3.86-4.86); Red Cell Distribution Width 13.5 % (12.1-15.2)
[2024-03-19 07:48] LABS: Albumin 2.1 g/dL (3.4-5.0); Albumin/Globulin Ratio 0.5 (1.1-1.8); Anion Gap 8.2 mEq/L (5.0-15.0); Bilirubin Total 0.4 mg/dL (0.2-1.0); Globulin 4.2 g/dL (2.3-3.5); Potassium 3.2 mEq/L (3.5-5.1); Protein, Total 6.3 g/dL (6.4-8.2)
--- NOTE | 2024-03-19 08:51 | P.PN ---
Date of Service: 03/19/24 Subjective: Feeling better today. Flank pain improving denies nausea/vomiting slight loose stool afebrile ROS: 10 point ROS as noted above, otherwise negative Physical Exam: GEN: Alert, oriented, NAD HEENT: Normal conjunctiva, sclera anicteric, CV: Regular rate and rhythm, no edema Pulm: Nonlabored respirations on room air, clear bilaterally ABD: soft, minimal R flank tenderness, nondistended Neuro: Normal speech, normal affect Problem List: Acute Right Pyelonephritis / UTI LILLIAN on CKD hyponatremia, hypokalemia, hypomagnesemia Hypertension Hyperlipidemia NIDDM2 Acute Right Pyelonephritis / UTI Reports with fever, nausea/vomiting, flank pain at home. denies frequent/recurrent UTIs CT abdomen (03/17): Findings suggesting right inguinal pyelonephritis Nonobstructing right renal calculi not exceeding 3 mm continue empiric cefepime (03/18-) Urine cx (03/17): prelim 3+ GNR blood cx (03/17): NGTD nausea/vomiting resolved afebrile; last fever at home (101) LILLIAN (multifactorial, secondaryt o contrast/ibuprofen use/toxic ATN due to UTI) on CKD hyponatremia, hypokalemia, hypomagnesemia Nephrology consulted continue IV fluids continue to monitor renal function. Monitor and replace electrolytes as needed creatinine improved daily labs Hypertension Hyperlipidemia confirm home meds, restart as appropriate PRN hydralazine NIDDM2 accu-checks, SSI VTE: Lovenox Code: Full Dispo: Home, ~1 day Pending culture results for final abx monitoring renal function s/p LILLIAN and iv contrast use
--- NOTE | 2024-03-19 16:28 | PN ---
Date of Progress Note: 03/19/2024 Subjective: The patient was admitted to the hospital with UTI, gastroenteritis, and acute kidney injury with electrolyte imbalance. The patient was started on IV hydration. Kidney function continued to improve. The patient feeling much better. Physical Examination: Vital Signs: When I saw the patient, blood pressure 156/63, pulse of 77, afebrile. Chest: Clear to auscultation. Heart: S1, S2, regular. Systolic murmur. Abdomen: Soft, nontender. Extremities: Trace edema. Neuro: Alert, no focality. Lab: WBC 6, hemoglobin 11.1. Sodium 135, potassium 3.2, bicarb 27, BUN 20, creatinine 0.7. Hemoglobin 8.6. Albumin 2.1. Current Medications: The patient on include: 1. Cefepime. 2. Lovenox. 3. Tylenol. 4. Pepcid. 5. Magnesium sulfate. Assessment And Plan: 1. Acute kidney injury, multifactorial, secondary to contrast, ibuprofen use, and toxic ATN secondary to UTI. Continues to recover. I am going to continue IV hydration and we will monitor. 2. Hyponatremia secondary to depletional. Sodium trending up, normalized. 3. Hypokalemia. We will supplement. 4. Hypomagnesemia. We will supplement. 5. Nephrolithiasis, nonobstructing. Continue current symptomatic treatment. 6. UTI, culture still pending. We will follow up culture. Time spent examining the patient [id number] reviewing data lab and the radiology placing orders and discussing the case with the patient discussing the case with the steam pressure chamber operator including hospitalist and nursing staff more than 55 minutes MATTHIAS Voice ID: [id number] Report ID: [id number] SEVEN
[2024-03-19 23:16] VITALS: O2SAT 96
[2024-03-20 04:01] LABS: Absolute Eosinophils 0.1 K/uL (0-0.5); Absolute Lymphocytes (CBC) 1.3 K/uL (0.7-4.9); Absolute Monocytes 0.5 K/uL (0.1-1.3); Absolute Neutrophil 3.6 K/uL (1.8-8.0); Basophils % 0.7 % (0-1.3); Eosinophils % 2.2 % (0-4.4); Lymphocytes % 23.2 % (15.3-44.8); MCH 30.7 pg (27.0-35.0); MCHC 35.5 g/dL (32.0-36.0); MCV 86.4 fL (80-100); MPV 7.5 fL (7.6-11.3); Monocytes % 8.9 % (3.3-12.3); Nucleated Red Blood Cells % 0.1 % (0-0); Platelets 248 thou/uL (152-406); RBC Red Blood Cell Count 3.59 M/uL (3.86-4.86); Red Cell Distribution Width 13.1 % (12.1-15.2)
[2024-03-20 04:12] LABS: Anion Gap 5.4 mEq/L (5.0-15.0); Magnesium 1.8 mg/dL (1.6-2.4); Potassium 3.4 mEq/L (3.5-5.1)
[2024-03-20] MEDS: POTASSIUM 25 MEQ EFFERV TAB PO SCH (09:13)
--- NOTE | 2024-03-20 10:46 | P.PN ---
Date of Service: 03/20/24 Subjective: Feeling better today feels minimal to no flank pain no issues overnight strength improving slowly afebrile ROS: 10 point ROS as noted above, otherwise negative Physical Exam: GEN: Alert, oriented, NAD HEENT: Normal conjunctiva, sclera anicteric, CV: Regular rate and rhythm, no edema Pulm: Nonlabored respirations on room air, clear bilaterally ABD: soft, minimal R flank tenderness, nondistended Neuro: Normal speech, normal affect Problem List: Acute Right Pyelonephritis / UTI with bacteremia - secondary to ESBL proteus gram negative bacteremia LILLIAN (multifactorial, secondary to contrast/ibuprofen use/toxic ATN due to UTI) on CKD hyponatremia, hypokalemia, hypomagnesemia Hypertension Hyperlipidemia NIDDM2 Acute Right Pyelonephritis / UTI gram negative bacteremia Reports fever, nausea/vomiting, flank pain at home. denies frequent/recurrent UTIs CT abdomen (03/17): Findings suggesting right inguinal pyelonephritis Nonobstructing right renal calculi not exceeding 3 mm continue cefepime (03/18-03/31) and merrem (03/20-03/31) Urine cx (03/17): Proteus mirabilis ESBL blood cx (03/17): GNR in 10/18 bottles ID consulted - recommending 2 weeks total abx nausea/vomiting resolved afebrile; last fever at home (101) LILLIAN (multifactorial, secondary to contrast/ibuprofen use/toxic ATN due to UTI) on CKD hyponatremia, hypokalemia, hypomagnesemia Nephrology consulted continue IV fluids continue to monitor renal function. Monitor and replace electrolytes as needed creatinine improved daily labs Hypertension Hyperlipidemia confirm home meds, restart as appropriate PRN hydralazine NIDDM2 accu-checks, SSI VTE: Lovenox Code: Full Dispo: Home, ~1-2 days Pending blood cultures / ID recs
[2024-03-20] MEDS: POTASSIUM CL SA 10 MEQ TAB PO ONE (12:25)
[2024-03-20] MEDS: Meropenem 1,000 MG in NA CHLORIDE 0.9% 100 ML IV SCH (13:21)
--- NOTE | 2024-03-20 13:26 | CON ---
History Of Present Illness: This is a 73-year-old female with significant past medical history of mo rbid obesity, hypertension, diabetes mellitus, coming in to hospital with the problem complaining of constipation of few days. The patient also had nausea, intermittent fever for few days and was confu sed as per her daughter, who recommended her to go to the emergency room for further workup. The pat ned was found to have acute right-sided pyelonephritis with gram-negative bacteremia. CT scan of [facility] abdomen and pelvis done on March 17 showed patient has right-sided pyelonephritis. Nonobstructing right-sided renal calculi was also noted. Patient's cultures are growing Proteus mirabilis, E coli. Blood cultures are no growth in 24 hours. Denies any headache, nausea, vomiting, chest pain, abdomi nal pain, constipation, or diarrhea. Past Medical History: As per HPI. Social History: Nonsmoker. Nondrinker. Family History: Noncontributory. Medications: Cefepime and meropenem. See MARs for other medications. Allergies: NO KNOWN DRUG ALLERGIES. Review of Systems: A 10-point review was performed. Physical Examination: General: This is a 73-year-old female, lying in bed, not in any acute cardiopulmonary distress. Vital Signs: Temperature 97, pulse 64, respirations 17, blood pressure 116/59. HEENT: Unremarkable. Neck: Supple. Lungs: Basal crackles. Heart: S1, S2. Regular. Abdomen: Soft, nontender. Bowel sounds present. Extremity: No edema. Laboratory Data: WBC 5.6, hemoglobin 11, platelets are 248. Chemistry shows BUN , creatin ine 0.8, albumin is 2.1. Assessment And Plan: Pyelonephritis with fevers and leukocytosis. Blood cultures, no growth. Urine is showing Proteus mirabilis, extended-spectrum beta-lactamases. We will recommend to treat for 2 w eeks IV carbapenem, can be switched to Invanz once a day. Once the patient will be discharged from [facility], discontinue cefepime. We will follow the patient as needed. NF/MODL Voice ID: [id number] Report ID: [id number]
[2024-03-20] MEDS: Magnesium Sulfate 2gm IVPB 2 G/50 ML BAG IV ONE (14:12)
--- NOTE | 2024-03-20 17:17 | PN ---
Date of Progress Note: 03/20/2024 Subjective: The patient was admitted to the hospital with electrolyte imbalance, found to have nephr olithiasis. The patient had acute kidney injury secondary to ibuprofen use and contrast exposure. K idney function started improving. The patient is feeling better. Physical Examination: Vital Signs: Blood pressure 125/55, pulse of 67, afebrile. Chest: Clear to auscultation. Heart: S1, S2. Regular. Abdomen: Soft, nontender. Extremities: Trace edema. Neuro: Alert. No focality. Laboratory Data: Hemoglobin 11. Sodium 135, potassium 3.4, bicarb 29, BUN 21, creatinine 0.8. GFR of 74. Calcium 8.6. Magnesium 1.8. Current Medications: The patient is on include Lovenox, albuterol, meropenem, lorazepam, Pepcid, Zof ran, KCl. Assessment And Plan: 1.Acute kidney injury, multifactorial, secondary to contrast-induced nephropathy, poor perfusion, ac adryan tubular necrosis, ibuprofen use, recovered, resolved. The patient has normal volume. I am going to discontinue IV fluid. 2.Hyponatremia, depletional, resolved. 3.Hypokalemia, hypomagnesemia. We will continue supplement. 4.Nephrolithiasis, not complicated. We will monitor. 5.Urinary tract infection, not complicated secondary to Proteus mirabilis. Continue current antibiotic. The patient is okay to be switched to Kenalog upon discharg alice TORRES/KLEVER Voice ID: [id number] Report ID: [id number]
[2024-03-21 04:37] LABS: Absolute Eosinophils 0.1 K/uL (0-0.5); Absolute Lymphocytes (CBC) 1.3 K/uL (0.7-4.9); Absolute Monocytes 0.4 K/uL (0.1-1.3); Absolute Neutrophil 3.7 K/uL (1.8-8.0); Basophils % 0.7 % (0-1.3); Eosinophils % 2.1 % (0-4.4); Hematocrit 32.3 % (36.0-45.0); Hemoglobin 11.3 g/dL (12.0-15.0); Lymphocytes % 23.6 % (15.3-44.8); MCH 30.2 pg (27.0-35.0); MCV 86.1 fL (80-100); MPV 7.4 fL (7.6-11.3); Monocytes % 7.7 % (3.3-12.3); Neutrophils % 65.9 % (41.7-73.7); Nucleated Red Blood Cells % 0.7 % (0-0); Platelets 278 thou/uL (152-406); RBC Red Blood Cell Count 3.75 M/uL (3.86-4.86); Red Cell Distribution Width 13.4 % (12.1-15.2)
[2024-03-21 04:47] LABS: Anion Gap 6.7 mEq/L (5.0-15.0); Magnesium 2.1 mg/dL (1.6-2.4); Potassium 3.7 mEq/L (3.5-5.1)
--- NOTE | 2024-03-21 07:37 | P.PN ---
Subjective Date of Service: 03/21/24 Chief Complaint: Flank pain, fever Subjective: Improving Review of Systems 10-point ROS is otherwise unremarkable Physical Examination - Vital Signs Temperature: 96.9 F Blood Pressure: 113/55 Pulse: 62 Respirations: 18 Pulse Ox (%): 94 - Physical Exam General: Alert, In no apparent distress HEENT: Atraumatic, Normocephalic, Sclerae nonicteric Respiratory: Clear to auscultation bilaterally, Normal air movement Cardiovascular: No edema, Regular rate/rhythm Gastrointestinal: Normal bowel sounds, Soft and benign, Non-distended, No tenderness Integumentary: No rashes - Studies laboratory, microbiology and imaging data reviewed Microbiology Data (last 24 hrs): 03/17/24 23:50 Clean Catch Urine [place] Count - Final >100,000 CFU/ML. 03/17/24 23:50 Clean Catch Urine - Final Proteus Mirabilis Esbl 03/17/24 21:40 Blood - Blood Gram Stain - Final Medications List Reviewed: Yes Assessment And Plan - Plan Problem List Proteus ESBL Bacteremia secondary to Acute Pyelonephritis Acute Kidney Injury - resolved Hypertension Hyperlipidemia Diabetes Mellitus type II, non-insulin dependent. Electrolyte imbalances Proteus mirabilis ESBL Bacteremia secondary to acute pyelonephritis - urine culture 03/17: Proteus mirabilis ESBL - blood cultures 03/17: proteus mirabilis ESBL in 2/4 bottles. - Previously on Cefepime (03/18-03/20) --> switched to Meropenem (03/20-) following ESBL culture results. - leukocytosis improved - afebrile Recommendations - Bacteremia, Pyelonephritis: continue antibiotic therapy for 2 weeks duration (03/18-03/31) - currently on meropenem, consider switch to Ertapenem 1g Q24H upon discharge. - monitor CBC and fever trends - strict blood glucose control. - supportive care case discussed with Alban Lockhart
--- NOTE | 2024-03-21 08:05 | P.PN ---
Date of Service: 03/21/24 Subjective: Feeling some improvement each day no new / worsening issues flank pain resolved formed BM today afebrile ROS: 10 point ROS as noted above, otherwise negative Physical Exam: GEN: Alert, oriented, NAD HEENT: Normal conjunctiva, sclera anicteric, CV: Regular rate and rhythm, no edema Pulm: Nonlabored respirations on room air, clear bilaterally ABD: soft, no tenderness, nondistended Neuro: Normal speech, normal affect Problem List: Acute Right Pyelonephritis / UTI with bacteremia - secondary to ESBL proteus LILLIAN (multifactorial, secondary to contrast/ibuprofen use/toxic ATN due to UTI) on CKD; improved hyponatremia, hypokalemia, hypomagnesemia Hypertension Hyperlipidemia NIDDM2 Acute Right Pyelonephritis / UTI with bacteremia - secondary to ESBL proteus Reports fever, nausea/vomiting, flank pain at home. denies frequent/recurrent UTIs CT abdomen (03/17): Findings suggesting right inguinal pyelonephritis Nonobstructing right renal calculi not exceeding 3 mm cefepime (03/18-03/20) switched to merrem given culture results (03/20-03/31) Urine cx (03/17): Proteus mirabilis ESBL blood cx (03/17): Proteus mirabilis ESBL in 2/4 bottles ID consulted - recommending 2 weeks total abx (end date: 03/31/24) needs PICC line / midline for IV antibiotics nausea/vomiting resolved afebrile; last fever at home (101) LILLIAN (multifactorial, secondary to contrast/ibuprofen use/toxic ATN due to UTI) on CKD; improved hyponatremia, hypokalemia, hypomagnesemia Nephrology consulted continue IV fluids continue to monitor renal function. Monitor and replace electrolytes as needed creatinine improved daily labs Hypertension Hyperlipidemia confirm home meds, restart as appropriate PRN hydralazine NIDDM2 accu-checks, SSI VTE: Lovenox Code: Full Dispo: Home Pending PICC line/midline and IV antibiotics setup
--- NOTE | 2024-03-21 15:15 | P.DS ---
Admission Date: 03/19/24 Discharge Date: 03/21/24 Disposition: [facility] Reason for Admission: Flank pain, fever Consultations: Infectious Disease - Dr. Mcmanus Nephrology - Dr. Wilcox, Dr. Douglas-Levi Brief History of Present Illness: 73yo F, PMH: obesity, hypertension, diabetes mellitus, Patient presents to the hospital today because of complaint of constipation, decreased p.o. intake, nausea, intermittent fever since the last 3 days but resolved since the last 1 day. Patient also admits to generalized malaise and fatigue. She states she normally have regular bowel movement but has not had any since the last 1 day. She admits to decreased p.o. intake since the last 3 days. She denies any dysuria, she admits to some right-sided flank pain but states pain is somewhat improved now. She seems to be more focused on the constipation since earlier today. On arrival in the ED workup, she was noted to be tachycardic at 116 but improved with gentle IV fluid to 96 now. Afebrile, blood pressure stable. Including UA shows evidence of UTI, CT of the abdomen shows right pyelonephritis, WBC elevated at 12,000, with left shift, lactic acid normal, serum sodium of 128, potassium of 3.1 and creatinine of 1.27, no previous test to compare. Hospital Course: Problem List: Acute Right Pyelonephritis / UTI with bacteremia - secondary to ESBL proteus LILLIAN (multifactorial, secondary to contrast/ibuprofen use/toxic ATN due to UTI) on CKD; improved hyponatremia, hypokalemia, hypomagnesemia Hypertension Hyperlipidemia [id number] Physician Discharge Instructions: Patient presented with fever, nausea/vomiting, flank pain, weakness and was found to have right sided acute pyelonephritis complicated by Proteus Mirabilis ESBL bacteremia. CT abdomen with findings consistent with right inguinal pyelonephritis. Urine and blood cultures both grew proteus mirabilis ESBL Patient was initially treated with IV cefepime and had improvement, but was changed to IV merrem once cultures resulted as ESBL. ID was consulted and recommenced 2 weeks total IV antibiotic treatment with ertapenem on discharge. Midline was placed 03/21 for continued IV antibiotics on discharge. Patient is to complete ~10 more days of ertapenem on discharge. (end date 03/31/24) Patient was feeling better, afebrile > 48 hours, leukocytosis resolved, flank pain resolved, and was deemed stable for discharge. Medications: Invanz (Ertapenem) 1000mg daily (end date 03/31/24) for a total of 2 weeks including antibiotic received in hospital. continue other home medications as previously prescribed Follow up: PCP 3-5 days Please call to schedule / confirm appointments Physical Exam: GEN: Alert, oriented, NAD HEENT: Normal conjunctiva, sclera anicteric, CV: Regular rate and rhythm, no edema Pulm: Nonlabored respirations on room air, clear bilaterally ABD: soft, no tenderness, nondistended Neuro: Normal speech, normal affect Vital Signs/Physical Exam: Temp Pulse Resp BP Pulse Ox 98.2 F 69 17 141/49 H 95 03/21/24 12:00 03/21/24 12:00 03/21/24 12:00 03/21/24 12:00 03/21/24 12:00 Laboratory Data at Discharge: WBC 5.60 thou/uL (4.3-10.9) 03/21/24 03:58 Hgb 11.3 g/dL (12.0-15.0) L 03/21/24 03:58 Hct 32.3 % (36.0-45.0) L 03/21/24 03:58 Plt Count 278 thou/uL (152-406) 03/21/24 03:58 PT 15.8 SECONDS (9.5-12.5) H 03/17/24 22:19 INR 1.45 03/17/24 22:19 APTT 37.4 SECONDS (24.3-36.9) H 03/17/24 22:19 Sodium 134 mEq/L (136-145) L 03/21/24 03:58 Potassium 3.7 mEq/L (3.5-5.1) 03/21/24 03:58 BUN 19 mg/dL (7-18) H 03/21/24 03:58 Creatinine 0.76 mg/dL (0.55-1.02) 03/21/24 03:58 Glucose 105 mg/dL (74-106) 03/21/24 03:58 Magnesium 2.1 mg/dL (1.6-2.4) 03/21/24 03:58 Total Bilirubin 0.4 mg/dL (0.2-1.0) 03/19/24 06:51 AST 25 U/L (15-37) 03/19/24 06:51 ALT 32 U/L (13-56) 03/19/24 06:51 Alkaline Phosphatase 45 U/L (45-117) 03/19/24 06:51 Lipase 27 U/L (13-75) 03/17/24 22:19 Home Medications: Glyburide/Metformin HCl [Glucovance 5-500 mg Tablet] 1 each PO BID 03/18/24 gemfibroziL [Gemfibrozil] 600 mg PO BID 03/18/24 Physician Discharge Instructions: Physician Discharge Instructions: Patient presented with fever, nausea/vomiting, flank pain, weakness and was found to have right sided acute pyelonephritis complicated by Proteus Mirabilis ESBL bacteremia. CT abdomen with findings consistent with right inguinal pyelonephritis. Urine and blood cultures both grew proteus mirabilis ESBL Patient was initially treated with IV cefepime and had improvement, but was changed to IV merrem once cultures resulted as ESBL. ID was consulted and recommenced 2 weeks total IV antibiotic treatment with ertapenem on discharge. Midline was placed 03/21 for continued IV antibiotics on discharge. Patient is to complete ~10 more days of ertapenem on discharge. (end date 03/31/24) Patient was feeling better, afebrile > 48 hours, leukocytosis resolved, flank pain resolved, and was deemed stable for discharge. Medications: Invanz (Ertapenem) 1000mg daily (end date 03/31/24) for a total of 2 weeks including antibiotic received in hospital. continue other home medications as previously prescribed Follow up: PCP 3-5 days Please call to schedule / confirm appointments Followup: Reilly Thomas DO [Primary Care Provider] - 2-3 Days Time spent managing pt's care (in minutes): 45
[2024-03-21] MEDS ORDERED: ERTAPENEM SODIUM 1 GM VIAL IVPB ONE (15:25)
[2024-03-21] MEDS: ERTAPENEM NA 1 GM in NA CHLORIDE 0.9% 100 ML IVPB ONE (15:55)
[2024-03-21 17:11] VITALS: BP 134/55; TEMP 98
--- NOTE | 2024-03-22 00:26 | PN ---
Date of Progress Note: 03/21/2024 Chief Complaint: Hyponatremia, electrolyte imbalance, acute kidney injury. Subjective: The patient is admitted to the hospital with electrolyte imbalance. She was found to oneil ve nephrolithiasis. The patient has acute kidney injury secondary to ibuprofen use and contrast expo sure. Kidney function has improved. Sodium level has improved gradually. There is ongoing prerenal azotemia with high BUN/creatinine ratio, which represents acute kidney injury. Review of Systems: Denies chest pain, palpitation. Physical Examination: Lungs: Clear to auscultation bilaterally. Heart: S1, S2. No pericardial friction rub. Abdomen: Soft, nontender. Extremities: Trace edema. Laboratory Data: BUN 21, creatinine 0.8, sodium 132. Calcium 8.6, magnesium 1.8. Hemoglobin 11. Impression And Plan: 1.Acute kidney injury, multifactorial, secondary to contrast-induced nephropathy, poor perfusion, ac [place] tubular necrosis, ibuprofen use. Renal function has improved. Acute kidney injury is gradually resolving. The patient does not have volume overload. IV fluids were stopped. The patient is derrick ating p.o. intake. 2.Hyponatremia, depletional, resolved and is controlled. 3.Hypokalemia and hypomagnesemia. Continue to supplement and monitor electrolyte panel. 4.Nephrolithiasis, uncomplicated. The patient will continue to follow up with Urology and Nephrolog y. 5.Urinary tract infection secondary to Proteus mirabilis. Continue antibiotics. RANJANA/KLEVER Voice ID: [id number] Report ID: [id number]
== END 2024-03-21 19:50 | disposition home health service (06) | DRG 871 ==
LOC: ER 18:12 → ERHOLD 03-18 00:57 → 2ND 03-18 02:45 → OBSVTOIN 03-19 08:56
PROVIDERS: ADMIT Internal Medicine; ATTEND Hospitalist
PROC: 02HV33Z Insertion of Infusion Device into Superior Vena Cava, Percutaneous Approach (ICD-10-PCS; principal; 2024-03-21)
DX: A41.51 Sepsis due to Escherichia coli [E. coli] (principal); N17.0 Acute kidney failure with tubular necrosis; N10 Acute pyelonephritis; Z68.41 Body mass index [BMI] 40.0-44.9, adult; E87.1 Hypo-osmolality and hyponatremia; Z16.12 Extended spectrum beta lactamase (ESBL) resistance; A41.59 Other Gram-negative sepsis; E66.01 Morbid (severe) obesity due to excess calories; E87.6 Hypokalemia; K59.00 Constipation, unspecified; K52.9 Noninfective gastroenteritis and colitis, unspecified; E78.00 Pure hypercholesterolemia, unspecified; I12.9 Hypertensive chronic kidney disease with stage 1 through stage 4 chronic kidney disease, or unspecified chronic kidney disease; N18.9 Chronic kidney disease, unspecified; E11.22 Type 2 diabetes mellitus with diabetic chronic kidney disease; E11.40 Type 2 diabetes mellitus with diabetic neuropathy, unspecified; N20.0 Calculus of kidney; E83.42 Hypomagnesemia; T50.8X5A Adverse effect of diagnostic agents, initial encounter; T39.315A Adverse effect of propionic acid derivatives, initial encounter; Z88.7 Allergy status to serum and vaccine; Z79.84 Long term (current) use of oral hypoglycemic drugs; Z90.49 Acquired absence of other specified parts of digestive tract; Z85.42 Personal history of malignant neoplasm of other parts of uterus; Z79.899 Other long term (current) drug therapy; Z90.710 Acquired absence of both cervix and uterus
CPT/HCPCS: 36415; 71045; 74177; 80048; 80053; 80076; 81001; 82565; 82947; 83605; 83690; 83735; 83880; 84132; 84484; 85025; 85610; 85730; 87040; 87077; 87086; 87088; 87186; 87205; 93005; 96361; 96365; 96375; 97161; 99285; G0378; J0692; J0696; J1335; J1650; J2185; J2405; J3475; J3480; J7030; J7040; Q9967

== ENCOUNTER 2024-08-21 09:53 | Inpatient (IN) | payer OTHER ==
--- OUTSIDE RECORDS SUMMARY | 2024-08-21 09:58 | XMS REPORT | Continuity of Care Document ---
Author Name Unknown Address [address] [facility] [place] [address] [facility] thconnect Address [address] [facility] [address] [place] [address] Care Team Providers Care Social Media Strategist Name Role Phone SAMVELIA CON Attending Clinician Unavailable ERJOVION_Poonam Attending Clinician Unavailable JAQUELINE_MIKHAIL Attending Clinician Unavailable A_Byshawn Attending Clinician Unavailable [facility] Attending Clinician Unavailable Diego Gerard MD Attending Clinician [phone] Doctor Unassigned, [place] Attending Clinician U navailable 1, [facility] Attending Clinician Unavailable ERICKSON_R Admitting Clinician Unavailable JAUQELINE_MIKHAIL Admitting Clinician Unavailable A_Byshawn Admitting Clinician Unavailable [facility] Admitting Clinician Unavailable Diego Gerard MD Admitting Clinician [phone] Payers Payer Name Policy Type Policy Number Effective Date Expirati on Date Source [place] 5 [id number] 2023 00:00:00 [facility] (MEDICARE REPLACEMENT/ADVANTA GE - HMO) [id number] 2023 00:00:00 [employer] (MEDICARE REPLACEMENT/ADVANTA GE - HMO) [id number] [place]: HAIDER DIEZ [id number] 2009 00:00:00 [employer] [place] [facility] (MEDICARE REPLACEMENT/ADVANTA GE - HMO) [id number] 2020 00:00:00 [facility] MEDICARE SOLUTIONS - MEDICARE COMPLETE (MEDICARE REPLACEMENT PPO) [id number] Problems Condition Name Condition Details Condition Category Status Onset Date Resolution Date Last Treatment Date Treating Clinician Comments Source Pulmonary emphysema Pulmonary Emphysema Problem Active 4- 00:00: 00 [facility] 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 Problem Active 4- 00:00: 00 [facility] Body mass index 40+ - severely obese Body Mass Index 40+ - Severely Obese Problem Active 4-04 00:00: 00 [facility] Bilateral osteoarthr itis of knees Bilateral Osteoarthr itis of Knees Problem Active 4-04 00:00: 00 [facility] Osteoarthr itis of joint of bilateral hands Osteoarthr itis of Joint of Bilateral Hands Problem Active 4-04 00:00: 00 [facility] Type 2 diabetes mellitus Type 2 Diabetes Mellitus Problem Active 4-04 00:00: 00 [facility] Hyperchole sterolemia Hyperchole sterolemia Problem Active 4-04 00:00: 00 [facility] Morbid obesity Morbid Obesity Problem Active 4-04 00:00: 00 [facility] Smoker Smoker Problem Active 4-04 00:00: 00 [facility] Infection of foot Infection of Foot Problem Active 5-06 00:00: 00 [facility] Abnormal gait due to muscle weakness Abnormal Gait Due to Muscle Weakness Problem Active 2-02 00:00: 00 [facility] Type 2 diabetes mellitus without complicati on Type 2 Diabetes Mellitus without Complicati on Problem Active 2019-10 0 00:00: 00 [facility] Morbid obesity Morbid Obesity Problem Active 2019-10 0 00:00: 00 [facility] Injury of foot Injury of Foot Problem Active 2019-10 0 00:00: 00 [facility] Body mass index 40+ - severely obese Body Mass Index 40+ - Severely Obese Problem Active 2019-10 0 00:00: 00 [facility] Pain in right hip joint Pain in Right Hip Joint Problem Active 2-11 00:00: 00 [facility] Urinary incontinen ce Urinary Incontinen ce Problem Active 2018-10 00:00: 00 [facility] Hypothyroi dism Hypothyroi dism Problem Active 04-01 00:00: 00 [facility] Candidiasi s of skin Candidiasi s of Skin Problem Active [facility] Diabetes mellitus Diabetes Mellitus Problem Active [facility] Hyperlipid emia Hyperlipid emia Problem Active [facility] Obesity Obesity Problem Active [facility] Postmenopa usal bleeding Postmenopa usal Bleeding Problem Active [facility] Hemorrhage of rectum and anus Hemorrhage of Rectum and Anus Problem Active [facility] Social History Social Habit Start Date Stop Date Quantity Comments Source Sex Assigned At [facility] Tobacco Comment 2019-06-10 00:00:00 2019-06-10 00:00:00 quit 40 years ago [facility] Smoking Status Start Date Stop Date Source Unknown if ever smoked [facility] Heavy Tobacco Smoker [facility] Former smoker 2019-06-10 00:00:00 2019-06-10 00:00:00 [facility] Medications Ordered Medication Name Filled Medication Name Start Date Stop Date Current Medication? Ordering Clinician Indication Dosage Frequency Signature (SIG) Comments Components Source water for irrigation irrigation solution 06-11 14:23: 00 Yes PRN, Starting Sun06/11/19 at 0923, Until Discontinu ed, Routine, Intra-op [facility] sodium chloride (NS) injection 06-11 14:23: 00 Yes PRN, Starting Sun06/11/19 at 0923, Until Discontinu ed, Routine, Intra-op [facility] neomycin-po lymyxin-dex amethasone (MAXITROL) 3.5 mg/g-10,000 unit/g-0.1 % ophthalmic ointment 06-11 14:23: 00 Yes PRN, Starting Sun06/11/19 at 0923, Until Discontinu ed, Routine, Intra-op [facility] lidocaine-e pinephrine (XYLOCAINE W/EPINEPHRI NE) 2 %-1:200,000 injection 06-11 14:22: 00 Yes PRN, Starting Sun06/11/19 at 0922, Until Discontinu ed, Routine, Intra-op [facility] Hyaluronida se, Human Recomb. (HYLENEX) injection 06-11 14:21: 00 Yes PRN, Starting Sun06/11/19 at 0921, Until Discontinu ed, Routine, Intra-op [facility] gentamicin injection 06-11 14:21: 00 Yes PRN, Starting Sun06/11/19 at 0921, Until Discontinu ed, JUDI, Intra-op [facility] EPINEPHrine 1:1,000 (1 mg/mL) (ADRENALIN) injection 06-11 14:20: 00 Yes PRN, Starting Sun06/11/19 at 0920, Until Discontinu ed, Routine, Intra-op [facility] DUOVISC (DUOVISC VISCO ELASTIC) 3 %-4 %(0.5 mL) 1 % (0.55 mL) intraocular injection 06-11 14:20: 00 Yes PRN, Starting Sun06/11/19 at 0920, Until Discontinu ed, Routine, Intra-op [facility] dexamethaso ne (DECADRON PHOSPHATE) injection 06-11 14:19: 00 Yes PRN, Starting Sun06/11/19 at 0919, Until Discontinu ed, Routine, Intra-op [facility] ceFAZolin (ANCEF) injection 06-11 14:19: 00 Yes PRN, Starting Sun06/11/19 at 0919, Until Discontinu ed, JUDI, Intra-op [facility] carbachol (MIOSTAT) 0.01 % intraocular injection 06-11 14:19: 00 Yes PRN, Starting Sun06/11/19 at 0919, Until Discontinu ed, Routine, Intra-op [facility] bupivacaine (preserv free) (SENSORCAIN E MPF) 0.75 % (7.5 mg/mL) injection 06-11 14:18: 00 Yes PRN, Starting Sun06/11/19 at 0918, Until Discontinu ed, Routine, Intra-op [facility] balanced salt irrig soln comb1 (BSS PLUS) ophthalmic solution 500 mL bag 06-11 14:18: 00 Yes PRN, Starting Sun06/11/19 at 0918, Until Discontinu ed, Routine, Intra-op [facility] phenylephri ne (AMY-SYNEPH RINE) 2.5 % ophthalmic drops 1 Drop 06-11 14:00: 00 06-11 13:34 :00 No 1[drp] 1 Drop, Right Eye, Q10M, 3 doses, First dose on Sun06/11/19 at 0900, Last dose on Sun06/11/19 at 0920, Routine, DSU Pre-op Univers [facility] cyclopentol ate (CYCLOGYL) 1 % ophthalmic drops 1 Drop 06-11 14:00: 00 06-11 13:35 :00 No 1[drp] 1 Drop, Right Eye, Q10M, 3 doses, First dose on Sun06/11/19 at 0900, Last dose on Sun06/11/19 at 0920, Routine, DSU Pre-op [facility] tropicamide (MYDRIACYL) 1 % ophthalmic drops 1 Drop 06-11 14:00: 00 06-11 13:34 :00 No 1[drp] 1 Drop, Right Eye, Q10M, 3 doses, First dose on Sun06/11/19 at 0900, Last dose on Sun06/11/19 at 0920, Routine, DSU Pre-op [facility] ketorolac (ACULAR) 0.5 % ophthalmic solution 1 Drop 06-11 14:00: 00 06-11 13:34 :00 No 1[drp] 1 Drop, Right Eye, Q10M, 3 doses, First dose on Sun06/11/19 at 0900, Last dose on Sun06/11/19 at 0920, Routine, DSU Pre-op
Reason for Non-Formul yeny Use: SPECIFIC INDICATION FOR NONFORMULA RY PRODUCT
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 Non-formul yeny medication : DIEGO GERARD [facility] NaCl 0.9% (NS) IV infusion 500 mL 06-11 13:15: 00 Yes 500mL at 20 mL/hr, IV Infusion, CONTINUOUS , Starting Sun06/11/19 at 0815, Until Discontinu ed, Routine, DSU Pre-op [facility] Easy Touch Alcohol Prep Pads USE TO TEST BLOOD GLUCOSE ONCE DAILY Easy Touch Alcohol Prep Pads USE TO TEST BLOOD GLUCOSE ONCE DAILY No Easy Touch Alcohol Prep Pads USE TO TEST BLOOD GLUCOSE ONCE DAILY [facility] gemfibrozil 600 mg tablet TAKE 1 TABLET BY MOUTH TWICE DAILY gemfibrozil 600 mg tablet TAKE 1 TABLET BY MOUTH TWICE DAILY No gemfibrozi l 600 mg tablet TAKE 1 TABLET BY MOUTH TWICE DAILY [facility] glyburide 5 mg-metformi n 500 mg tablet TAKE 1 TABLET BY MOUTH TWICE DAILY FOR DIABETES glyburide 5 mg-metformi n 500 mg tablet TAKE 1 TABLET BY MOUTH TWICE DAILY FOR DIABETES No glyburide 5 mg-metform in 500 mg tablet TAKE 1 TABLET BY MOUTH TWICE DAILY FOR DIABETES [facility] lancing device USE WITH LANCETS TO TEST BLOOD GLUCOSE lancing device USE WITH LANCETS TO TEST BLOOD GLUCOSE No lancing device USE WITH LANCETS TO TEST BLOOD GLUCOSE [facility] OneTouch Ultra Control solution USE TO CALIBRATE METER OneTouch Ultra Control solution USE TO CALIBRATE METER No OneTouch Ultra Control solution USE TO CALIBRATE METER [facility] OneTouch Ultra Test strips USE TO TEST BLOOD GLUCOSE ONCE DAILY OneTouch Ultra Test strips USE TO TEST BLOOD GLUCOSE ONCE DAILY No OneTouch Ultra Test strips USE TO TEST BLOOD GLUCOSE ONCE DAILY [facility] OneTouch Ultra2 Meter USE TO TEST BLOOD GLUCOSE OneTouch Ultra2 Meter USE TO TEST BLOOD GLUCOSE No OneTouch Ultra2 Meter USE TO TEST BLOOD GLUCOSE [facility] Safety Lancets 28 gauge USE TO TEST BLOOD GLUCOSE ONCE DAILY Safety Lancets 28 gauge USE TO TEST BLOOD GLUCOSE ONCE DAILY No Safety Lancets 28 gauge USE TO TEST BLOOD GLUCOSE ONCE DAILY [facility] gemfibrozil 600 mg tablet Take 1 tablet twice a day by oral route. gemfibrozil 600 mg tablet Take 1 tablet twice a day by oral route. No 1 BID gemfibrozi l 600 mg tablet Take 1 tablet twice a day by oral route. [facility] glyburide 5 mg-metformi n 500 mg tablet Take 1 tablet twice a day by oral route. glyburide 5 mg-metformi n 500 mg tablet Take 1 tablet twice a day by oral route. No 1 BID glyburide 5 mg-metform in 500 mg tablet Take 1 tablet twice a day by oral route. [facility] Vital Signs Vital Name Observation Time Observation Value Comments S ource BP Diastolic 2023-01-16 00:00:00 72 mm[Hg] [facility] Height 2023-01-16 00:00:00 63 [in_i] [facility] BMI (Body Mass Index) 2023-01-16 00:00:00 42.7 kg/m2 [facility] BP Systolic 2023-01-16 00:00:00 118 mm[Hg] [facility] Body Weight 2023-01-16 00:00:00 3856 [oz_av] [facility] BP Diastolic 2022-02-28 00:00:00 86 mm[Hg] [facility] Height 2022-02-28 00:00:00 63 [in_i] [facility] BMI (Body Mass Index) 2022-02-28 00:00:00 41.5 kg/m2 [facility] BP Systolic 2022-02-28 00:00:00 139 mm[Hg] [facility] Body Weight 2022-02-28 00:00:00 3752 [oz_av] [facility] BP Diastolic 2021-08-02 00:00:00 75 mm[Hg] [facility] Height 2021-08-02 00:00:00 63 [in_i] [facility] BMI (Body Mass Index) 2021-08-02 00:00:00 41.6 kg/m2 [facility] BP Systolic 2021-08-02 00:00:00 137 mm[Hg] [facility] Body Weight 2021-08-02 00:00:00 3755.2 [oz_av] [facility] Height 2021-02-17 00:00:00 63 [in_i] [facility] BP Systolic 2021-02-17 00:00:00 129 mm[Hg] [facility] BP Diastolic 2021-02-17 00:00:00 82 mm[Hg] [facility] BP Diastolic 2020-11-16 00:00:00 59 mm[Hg] [facility] Height 2020-11-16 00:00:00 63 [in_i] [facility] BMI (Body Mass Index) 2020-11-16 00:00:00 45.4 kg/m2 [facility] BP Systolic 2020-11-16 00:00:00 159 mm[Hg] [facility] Body Weight 2020-11-16 00:00:00 4104 [oz_av] [facility] BP Diastolic 2020-08-03 00:00:00 60 mm[Hg] [facility] Height 2020-08-03 00:00:00 63 [in_i] [facility] BMI (Body Mass Index) 2020-08-03 00:00:00 48.4 kg/m2 [facility] BP Systolic 2020-08-03 00:00:00 125 mm[Hg] [facility] Body Weight 2020-08-03 00:00:00 4374 [oz_av] [facility] BP Diastolic 2019-11-25 00:00:00 88 mm[Hg] [facility] Height 2019-11-25 00:00:00 63 [in_i] [facility] BMI (Body Mass Index) 2019-11-25 00:00:00 46.1 kg/m2 [facility] BP Systolic 2019-11-25 00:00:00 159 mm[Hg] [facility] Body Weight 2019-11-25 00:00:00 4160 [oz_av] [facility] BP Diastolic 2019-09-08 00:00:00 80 mm[Hg] [facility] Height 2019-09-08 00:00:00 63 [in_i] [facility] BP Systolic 2019-09-08 00:00:00 163 mm[Hg] [facility] Systolic blood pressure 2019-06-11 15:19:00 131 mm[Hg] [facility] Diastolic blood pressure 2019-06-11 15:19:00 70 mm[Hg] [facility] Heart rate 2019-06-11 15:19:00 69 /min [facility] Body temperature 2019-06-11 15:19:00 36.67 [facility] Respiratory rate 2019-06-11 15:19:00 18 /min [facility] Oxygen saturation in Arterial blood by Pulse oximetry 2019-06-11 15:19:00 94 /min [facility] Body height 2019-06-10 13:00:00 160 cm [facility] Body weight 2019-06-10 13:00:00 122.471 kg [facility] BMI 2019-06-10 13:00:00 47.83 kg/m2 [facility] Systolic blood pressure 2019-06-11 15:19:00 131 mm[Hg] [facility] Diastolic blood pressure 2019-06-11 15:19:00 70 mm[Hg] [facility] Heart rate 2019-06-11 15:19:00 69 /min [facility] Body temperature 2019-06-11 15:19:00 36.67 [facility] Respiratory rate 2019-06-11 15:19:00 18 /min [facility] Oxygen saturation in Arterial blood by Pulse oximetry 2019-06-11 15:19:00 94 /min [facility] Body height 2019-06-10 13:00:00 160 cm [facility] Body weight 2019-06-10 13:00:00 122.471 kg [facility] BMI 2019-06-10 13:00:00 47.83 kg/m2 [facility] BP Diastolic 2019-04-07 00:00:00 70 mm[Hg] [facility] Height 2019-04-07 00:00:00 63 [in_i] [facility] BMI (Body Mass Index) 2019-04-07 00:00:00 48 kg/m2 [facility] BP Systolic 2019-04-07 00:00:00 124 mm[Hg] [facility] Body Weight 2019-04-07 00:00:00 4336 [oz_av] [facility] BP Diastolic 2019-02-27 00:00:00 69 mm[Hg] [facility] Height 2019-02-27 00:00:00 63 [in_i] [facility] BP Systolic 2019-02-27 00:00:00 131 mm[Hg] [facility] BP Diastolic 2018-10-07 00:00:00 83 mm[Hg] [facility] Height 2018-10-07 00:00:00 63 [in_i] [facility] BMI (Body Mass Index) 2018-10-07 00:00:00 48.2 kg/m2 [facility] BP Systolic 2018-10-07 00:00:00 148 mm[Hg] [facility] Body Weight 2018-10-07 00:00:00 4352 [oz_av] [facility] Procedures Procedure Date / Time Performed Performing Clinician Source unlisted imaging order 2019-11-25 00:00:00 [facility] DAY SURGERY - ADC 2019-06-11 05:01:00 Doctor Sheri ssigned, [place] [facility] Cataract Surgery Complex 2019-06-11 00:00:00 [facility] CONSENT/REFUSAL FOR DIAGNOSIS AND TREATMENT 2019-06-04 21:49:49 Doctor Unassigned, [place] [facility] ASSIGNMENT OF BENEFITS 2019-06-04 21:49:32 Docto r Unassigned, [place] [facility] NOTICE OF PRIVACY PRACTICES 2019-06-04 21:49:14 Doctor Unassigned, [place] [facility] CONSENT/REFUSAL FOR DIAGNOSIS AND TREATMENT 2019-06-04 21:48:56 Doctor Unassigned, [place] [facility] ASSIGNMENT OF BENEFITS 2019-06-04 21:48:37 Docto r Unassigned, [place] [facility] PHYSICIAN ORDERS 2019-06-04 05:01:00 Doctor Unas signed, [place] [facility] Appendectomy [facility] Bladder Suspension [facility] Hysterectomy [facility] Anesth Tubal Ligation [facility] Lap Cholecystectomy [facility] Cervical Laminoplsty 2/> Seg [facility] Dental Surgical Procedure [facility] Procedure on Neck [facility] Appendectomy [facility] Total Hysterectomy [facility] Cholecystectomy [facility] Ligation of Fallopian Tube S [facility] Plan of Care Planned Activity Planned Date Details Comments Source Diagnostic Test Pending 2023-01-16 00:00:00 CMP, serum or plasma [code = CMP, serum or plasma] [facility] Diagnostic Test Pending 2023-01-16 00:00:00 CBC w/ auto diff [code = CBC w/ auto diff] [facility] Diagnostic Test Pending 2023-01-16 00:00:00 HbA1c (hemoglobin A1c), blood [code = HbA1c (hemoglobin A1c), blood] [facility] Diagnostic Test Pending 2023-01-16 00:00:00 TSH, serum or plasma [code = TSH, serum or plasma] [facility] Encounters Start Date/Time End Date/Time Encounter Type Admission Type Attending Clinicians Care Facility Care Department Encounter ID Source 2023-07-09 11:15:00 2023-07-09 11:15:00 Outpatient CON LEON [id number] Urmila Aldana 2023-06-11 15:30:00 2023-06-11 15:30:00 Outpatient CON LEON [id number] Urmila Aldana 2023-03-05 00:00:00 2023-03-05 00:00:00 Outpatient ERICKSON_R [facility] [id number] [facility] 2023-03-05 00:00:00 2023-03-05 00:00:00 Outpatient ERICKSON_R [facility] [id number] [facility] 2023-03-05 00:00:00 2023-03-05 00:00:00 Outpatient ERICKSON_R [facility] [id number] [facility] 2023-01-18 00:00:00 2023-01-18 00:00:00 Outpatient ERICKSON_R [facility] [id number] [facility] 2023-01-16 00:00:00 2023-01-16 00:00:00 Outpatient ERICKSON_R [facility] [id number] [facility] 2023-01-16 00:00:00 2023-01-16 00:00:00 Devin Gaspar, DO: [address], [place] [address] , Ph. [phone] [facility], DR. GASPAR [phone] [facility] 2023-01-15 00:00:00 2023-01-15 00:00:00 Outpatient ERICKSON_R [facility] [id number] [facility] 2022-05-16 00:00:00 2022-05-16 00:00:00 Outpatient AMBREEN_JM PLASCENCIA RILAYLA [facility] [id number] [facility] 2022-02-28 00:00:00 2022-02-28 00:00:00 Iisdro Kiser MD: [address] [place] [address] [address], [place] [address] , Ph. Yolande [facility] 9439- 517 [facility] 2021-08-02 00:00:00 2021-08-02 00:00:00 Isidro Kiser MD: [address], [place] [address] , Ph. A_Bysahwn [facility] [id number] 019 [facility] 2021-02-17 00:00:00 2021-02-17 00:00:00 Isidro Kiser MD: [address], [place] [address] , Ph. A_Byshawn [facility] 39- [phone] [facility] 2021-02-16 11:41:00 2021-02-16 11:41:00 Outpatient A_Byrd [facility] [id number] [facility] 2020-11-16 00:00:00 2020-11-16 00:00:00 Isidro Kiser MD: [address], [place] [id number] , Ph. A_Byshawn [facility] 9439- 202 [facility] 2020-11-15 04:28:00 2020-11-15 04:28:00 Outpatient A_Byrd [facility] [id number] [facility] 2020-10-26 10:27:00 2020-10-26 10:27:00 Outpatient [facility] [id number] [facility] 2020-08-03 00:00:00 2020-08-03 00:00:00 Isidro Kiser MD: [address], [place] [address] , Ph. [facility] 39- [phone] [facility] 2019-12-24 11:03:00 2019-12-24 11:03:00 Outpatient A_Byrd [facility] [id number] [facility] 2019-11-25 00:00:00 2019-11-25 00:00:00 Isidro Kiser MD: [address], [place] [address] , Ph. A_Byrd [facility] 211 [facility] 2019-10-11 03:37:00 2019-10-11 03:37:00 Outpatient A_Byrd [facility] [id number] [facility] 2019-09-08 00:00:00 2019-09-08 00:00:00 Isidro Kiser MD: [address], [place] [address] , Ph. [facility] 125 [facility] 2019-06-11 07:40:00 2019-06-11 10:40:00 Hospital Encounter [place] [facility] [id number] 2019-06-11 07:40:00 2019-06-11 10:40:00 Hospital Encounter [place] [facility] [id number] [facility] 2019-06-11 00:00:00 2019-06-11 00:00:00 Orders Only Doctor Unassigned, [place] [facility] [id number] 2019-06-11 00:00:00 2019-06-11 00:00:00 Orders Only Doctor Unassigned, [place] [id number] [facility] 2019-06-04 16:51:56 2019-06-04 17:06:56 Consultant Teacher Visit 1, Adc Lab [facility] [id number] 2019-06-04 16:51:56 2019-06-04 17:06:56 Consultant Teacher Visit 1, Adc Lab Diego Gerard [facility] [id number] [facility] 2019-04-07 00:00:00 2019-04-07 00:00:00 Isidro Kiser MD: [address], [place] [address] , Ph. [facility] 9439- 624 [facility] 2019-02-27 00:00:00 2019-02-27 00:00:00 Isidro Kiser MD: [address], [place] [address] , Ph. [facility] [phone] 516 [facility] 2018-10-07 00:00:00 2018-10-07 00:00:00 Isidro Kiser MD: [address], [place] [address] , Ph. [facility] [facility] [id number] 224 [facility]
--- NOTE | 2024-08-21 10:39 | RAD REPORT ---
EXAMINATION: ONE VIEW CHEST XR CLINICAL INDICATION: FEVER TECHNIQUE: Frontal chest projection is submitted. Examination is limited by patient positioning and t echnique. COMPARISON: 03/17/2024 FINDINGS: Mild interstitial pulmonary edema. The heart is moderately enlarged in size. No displaced fractures i dentified. Cervical hardware plate. IMPRESSION: Interstitial opacities could indicate mild interstitial pulmonary edema or viral infection.
[2024-08-21 11:40] LABS: SARS-CoV-2 Antigen CONTROL BLUE LINE VIS/BG OK; SARS-CoV-2 Antigen Rapid Res Negative (Negative)
--- NOTE | 2024-08-21 12:09 | RAD REPORT ---
EXAMINATION: CT ABDOMEN AND PELVIS WITHOUT CONTRAST CLINICAL INDICATION: diarrhea, fever;Abd pain TECHNIQUE: CT abdomen and pelvis was performed, without IV contrast, as per department protocol. Axia l, sagittal and coronal reconstructions were obtained. One or more of the following dose reduction techniques were used: Automated exposure control, adjustment of the mA and kV according to the patien t size, and iterative reconstruction. Unless otherwise specified, incidental findings do not require dedicated imaging follow-up. COMPARISON: 03/17/2024 FINDINGS: The lack of intravenous contrast limits the sensitivity of this exam for evaluation of solid visceral organs, vascular structures, and retroperitoneum. LOWER CHEST: The visualized lung bases are clear. LIVER:Liver is mildly prominent in size. Cholecystectomy clips. SPLEEN: Normal size. No focal lesion. PANCREAS: No mass, ductal dilation, or lata-pancreatic fluid. ADRENALS: Normal; no mass. KIDNEYS AND URETERS: Several stones are noted in the right renal calyces largest measuring 8 mm super iorly. Fat stranding is seen surrounding the right kidney. URINARY BLADDER: Normal contour. GASTROINTESTINAL TRACT: No evidence of bowel obstruction, significant free fluid, free air or abscess . APPENDIX: Normal appendix. LYMPH NODES: No lymphadenopathy. MUSCULOSKELETAL: Moderate multilevel spinal degenerative changes. ADDITIONAL FINDINGS: Small fat-containing ventral hernia inferiorly. IMPRESSION: Right-sided pyelonephritis is a possibility. Assessment is limited due to lack of contrast material. Right renal calculi without hydronephrosis.
[2024-08-21 12:26] LABS: Absolute Lymphocytes (CBC) 0.8 K/uL (0.7-4.9); Absolute Monocytes 0.5 K/uL (0.1-1.3); Absolute Neutrophil 10.4 K/uL (1.8-8.0); Basophils % 0.3 % (0-1.3); Hematocrit 36.8 % (36.0-45.0); Hemoglobin 12.6 g/dL (12.0-15.0); Lymphocytes % 6.8 % (15.3-44.8); MCH 29.6 pg (27.0-35.0); MCHC 34.2 g/dL (32.0-36.0); MCV 86.8 fL (80-100); Monocytes % 4.6 % (3.3-12.3); Neutrophils % 88.3 % (41.7-73.7); Platelets 203 thou/uL (152-406); RBC Red Blood Cell Count 4.24 M/uL (3.86-4.86); Red Cell Distribution Width 13.7 % (12.1-15.2)
[2024-08-21] MEDS ORDERED: NA CHLORIDE 0.9% 500 ML ONE (12:37)
[2024-08-21 12:38] LABS: Albumin 2.6 g/dL (3.4-5.0); Albumin/Globulin Ratio 0.5 (1.1-1.8); Anion Gap 9.1 mEq/L (5.0-15.0); Bilirubin Total 0.5 mg/dL (0.2-1.0); Globulin 4.8 g/dL (2.3-3.5); Potassium 3.1 mEq/L (3.5-5.1); Protein, Total 7.4 g/dL (6.4-8.2)
[2024-08-21 12:42] LABS: PT Prothrombin Time 15.7 SECONDS (9.4-12.5); PTT, Activated Partial Thromb 39.3 SECONDS (24.3-36.9); Protime INR 1.42
[2024-08-21 13:16] LABS: Blood Morphology Comment NOT SEEN (NOT SEEN); Platelet Estimate ADEQ; White Blood Cell Scan OK (OK)
[2024-08-21 14:25] LABS: Specific Gravity 1.021 (1.005-1.030); Sqamous Epithelial <5 /HPF (None Seen); Urine Bacteria None Seen /HPF (<20); Urine Bilirubin NEGATIVE (Negative); Urine Blood Trace (Negative); Urine Clarity Extremely Turbid (Clear); Urine Color Yellow (Yellow); Urine Culture Reflex Order REFLEXED; Urine Glucose NEGATIVE (Negative); Urine Granular Casts 0-5 /LPF (None Seen); Urine Ketones NEGATIVE (Negative); Urine Microscopic Reflex YN ORDER UMIC; Urine Mucus Slight /HPF (None Seen); Urine Nitrite NEGATIVE (Negative); Urine Protein 1+ (Negative); Urine Urobilinogen Normal (Normal); Urine WBC >50 /HPF (<5); Urine WBC Clump Few /HPF (None Seen); Urine pH 5.5 (5.0-7.0)
--- NOTE | 2024-08-21 15:19 | ER ---
Nurse's Notes [facility] Name: Angela Mccain Age: 74 yrs Sex: Female : 1950 Arrival Date: 08/21/2024 Time: 09:53 Bed 15 Private MD: Diagnosis: Pyelonephritis acute;Fever, unspecified;Muscle weakness (generalized) Presentation: 08/21 10:10 Chief complaint: Patient states: Abdominal pain for 3 days. + weak, no appetite, and ll1 cough. Had black runny stool yesterday. Low grade fever at home. Coronavirus screen: Client denies travel out of the [place] in the last 14 days. At this time, the client does not indicate any symptoms associated with coronavirus-19. Ebola Screen: Patient denies travel to an Ebola-affected area in the 21 days before illness onset. Initial Sepsis Screen: Does the patient meet any 2 criteria? No. Patient's initial sepsis screen is negative. Does the patient have a suspected source of infection? No. Patient's initial sepsis screen is negative. Risk Assessment: Do you want to hurt yourself or someone else? Patient reports no desire to harm self or others. Onset of symptoms was August 29, 2024. 10:10 Method Of Arrival: Wheelchair ll1 10:10 Acuity: RADHA 3 ll1 Historical: - Allergies: 10:09 Vaccines; ll1 - PMHx: 10:09 diabetes mellitus; Hypercholesterolemia; ll1 - Immunization history:: Adult Immunizations up to date. - Infectious Disease History:: Denies. - Social history:: Smoking status: Patient reports the use of cigarette tobacco products, smokes .2 packs per day. - Family history:: not pertinent. - Hospitalizations: : No recent hospitalization is reported. Screenin:15 [facility] ED Fall Risk Assessment (Adult) History of falling in the last 3 months, ph including since admission No falls in past 3 months (0 pts) Confusion or Disorientation No (0 pts) Intoxicated or Sedated No (0 pts) Impaired Gait No (0 pts) Mobility Assist Device Used No (0 pt) Altered Elimination Yes (1 pt) Score/Fall Risk Level 0 - 2 = Low Risk Oriented to surroundings, Maintained a safe environment, Hourly rounding (assess needs \T\ fall precautionary measures) done, Used ambulatory aids as needed (educated on \T\ assisted with). Abuse screen: Denies threats or abuse. Denies injuries from another. Nutritional screening: No deficits noted. Tuberculosis screening: No symptoms or risk factors identified. Assessment: 12:16 General: Appears in no apparent distress. comfortable, Behavior is calm, cooperative. ph General: Reports fatigue for. Pain: Denies pain. Neuro: Level of Consciousness is awake, alert, obeys commands, Oriented to person, place, time, situation. Cardiovascular: Capillary refill < 3 seconds in bilateral fingers Patient's skin is warm and dry. Respiratory: Airway is patent Respiratory effort is even, unlabored, Respiratory pattern is regular, symmetrical. GI: Reports diarrhea, Patient currently denies abdominal pain, nausea, vomiting. Derm: Skin is pink, warm \T\ dry. 14:00 Reassessment: Patient appears in no apparent distress at this time. Patient and/or ph family updated on plan of care and expected duration. Pain level reassessed. Patient is alert, oriented x 3, equal unlabored respirations, skin warm/dry/pink. 16:33 Reassessment: Patient appears in no apparent distress at this time. Patient and/or ph family updated on plan of care and expected duration. Pain level reassessed. Patient is alert, oriented x 3, equal unlabored respirations, skin warm/dry/pink. Vital Signs: 10:10 BP 118 / 58; Pulse 89; Resp 17; Pulse Ox 95% on R/A; Weight 99.79 kg; Height 5 ft. 3 ll1 in. ; Pain 0/10; 12:17 BP 109 / 48; Pulse 86; Resp 18; Pulse Ox 95% on R/A; ph 13:23 BP 108 / 52; Pulse 84; Resp 18; Pulse Ox 95% on R/A; ph 15:00 BP 104 / 58; Pulse 78; Resp 18; Pulse Ox 96% on R/A; ph 15:00 BP 107 / 60; Pulse 78; Resp 18; Temp 98.2; Pulse Ox 98% on R/A; ph 10:10 Body Mass Index 38.97 (99.79 kg, 160.02 cm) ll1 10:10 Pain Scale: Adult ll1 ED Course: 10:01 Patient arrived in ED. im 10:01 Yohannes Parks MD is Attending Physician. rn 10:09 Arm band placed on Patient placed in an exam room, on a stretcher. ll1 10:11 Triage completed. ll1 10:34 XRAY Chest (1 view) In Process Unspecified. EDMS 11:13 Missed attempt(s): 20 gauge in right antecubital area. Bleeding controlled, band aid tm6 applied, catheter tip intact. 11:13 Inserted saline lock: 22 gauge in right forearm, using aseptic technique. Blood tm6 collected. Flushed with 10 mL NS. 11:13 Protime (+inr) Sent. tm6 11:13 Ptt, Activated Sent. tm6 11:13 SARS RAPID Sent. tm6 11:13 Flu Sent. tm6 11:38 Yumiko Samayoa, RN is Primary Nurse. ph 11:45 Abdomen In Process Unspecified. EDMS 12:14 Initial lab(s) drawn, Lab(s) recollected, by me, sent to lab. ph 12:17 Patient has correct armband on for positive identification. Bed in low position. Call ph light in reach. Side rails up X 1. Pulse ox on. NIBP on. Door closed. Noise minimized. Warm blanket given. Pillow given. 13:15 First set of blood cultures drawn by me, Second set of blood cultures drawn by me. ph 13:22 Inserted saline lock: 22 gauge in left forearm, using aseptic technique. Blood ph collected. Flushed with 10 mL NS. 14:14 Urinalysis w/ reflexes Sent. ph 14:14 Urine collected: straight cath specimen, cloudy, jamie colored. ph 15:18 Zeus Parks MD is Hospitalizing Provider. rn 15:19 Elise Catherine is Hospitalizing Provider. rn 17:16 No provider procedures requiring assistance completed. Patient admitted, IV remains in ph place. Administered Medications: 13:22 Drug: NS 0.9% IV 500 ml 500 ml IV at 1 bolus once; to be given as a bolus over 30 ph minutes Volume: 500 ml; Route: IV; Rate: 1 bolus; Site: left forearm; 13:55 Follow up: Response: No adverse reaction; IV Status: Completed infusion; IV Intake: ph 500ml 15:45 Drug: Rocephin IV 1 grams IV at calculated rate once; Given slow IV push per pharmacy ph instructions Route: IV; Rate: calculated rate; Site: left forearm; 16:21 Follow up: Response: No adverse reaction; IV Status: Completed infusion ph Medication: 12:16 VIS not applicable for this client. ph Intake: 13:55 IV: 500ml; Total: 500ml. ph Outcome: 15:18 Decision to Hospitalize by Provider. rn 17:17 Admitted to Med/surg accompanied by nurse, via wheelchair, room 215, with chart, ph 17:17 Condition: stable 17:17 Instructed on the need for admit, 17:18 Patient left the ED. ph Signatures: Dispatcher [employer] EDMS Yohannes Parks MD MD rn Hall, Patricia RN RN ph Berna Crook RN RN ll1 Deborah Kwong Tawney RN RN tm6
--- NOTE | 2024-08-21 15:19 | EDPHYS ---
Physician Documentation [facility] Name: Angela Mccain Age: 74 yrs Sex: Female : 1950 Arrival Date: 08/21/2024 Time: 09:53 Bed 15 Private MD: ED Physician Yohannes Parks HPI: 08/21 12:49 This 74 yrs old Female presents to ER via Wheelchair with complaints of Fever, rn Diarrhea, Cough, General Weakness. 12:49 The patient reports fever, not measured (subjective). rn 12:50 Onset: The symptoms/episode began/occurred 3 day(s) ago. Modifying factors: there are rn no obvious modifying factors. Associated signs and symptoms: Pertinent positives: abdominal pain, chills, cough, diarrhea. Severity of symptoms: At their worst the symptoms were mild in the emergency department the symptoms are unchanged. The patient has not experienced similar symptoms in the past. Patient reports 3 days of fever, chills, abdominal pain, nausea, diarrhea and cough. Reports generalized weakness and malaise. No fall or trauma. No bright red blood in stool. Reports 1 episode of dark stool and is loose. No shortness of breath.. Historical: - Allergies: 10:09 Vaccines; ll1 - PMHx: 10:09 diabetes mellitus; Hypercholesterolemia; ll1 - Immunization history:: Adult Immunizations up to date. - Infectious Disease History:: Denies. - Social history:: Smoking status: Patient reports the use of cigarette tobacco products, smokes .2 packs per day. - Family history:: not pertinent. - Hospitalizations: : No recent hospitalization is reported. ROS: 12:50 Constitutional: Positive for fever and chills Cardiovascular: Negative for chest pain, rn palpitations, and edema, Respiratory: Positive for cough, negative for shortness of breath Abdomen/GI: Positive for abdominal pain with nausea and diarrhea MS/Extremity: Negative for injury and deformity, Skin: Negative for injury, rash, and discoloration, Neuro: Positive for generalized weakness Exam: 12:50 Constitutional: This is a well developed, well nourished patient who is awake, alert, rn and in no acute distress. Eyes: Normal conjunctiva ENT: Dry mucous membranes Cardiovascular: Regular rate and rhythm. No pulse deficits. Respiratory: Speaking full sentences, unlabored. No increased work of breathing, no retractions or nasal flaring. Abdomen/GI: Soft, no focal tenderness MS/ Extremity: Pulses equal, no cyanosis. Neuro: Awake and alert, GCS 15 Vital Signs: 10:10 BP 118 / 58; Pulse 89; Resp 17; Pulse Ox 95% on R/A; Weight 99.79 kg; Height 5 ft. 3 ll1 in. ; Pain 0/10; 12:17 BP 109 / 48; Pulse 86; Resp 18; Pulse Ox 95% on R/A; ph 13:23 BP 108 / 52; Pulse 84; Resp 18; Pulse Ox 95% on R/A; ph 15:00 BP 104 / 58; Pulse 78; Resp 18; Pulse Ox 96% on R/A; ph 15:00 BP 107 / 60; Pulse 78; Resp 18; Temp 98.2; Pulse Ox 98% on R/A; ph 10:10 Body Mass Index 38.97 (99.79 kg, 160.02 cm) ll1 10:10 Pain Scale: Adult ll1 MDM: 10:01 Medical Screening Exam initiated rn 15:17 Differential diagnosis: viral Infection, bacterial infection, URI, pneumonia UTI, rn gastroenteritis. Data reviewed: vital signs, nurses notes, lab test result(s), radiologic studies, CT scan, and as a result, I will admit patient. Consideration of Admission/Observation Patient was admitted/placed on observation. Escalation of care including admission/observation considered. Care significantly affected by the following chronic conditions: Diabetes, Hypertension. Counseling: I had a detailed discussion with the patient and/or guardian regarding the historical points, exam findings, and any diagnostic results supporting the discharge/admit diagnosis, lab results, radiology results, the need for further work-up and treatment in the hospital. 08/21 10:02 Order name: CBC with Diff; Complete Time: 13:23 rn 08/21 10:02 Order name: CMP; Complete Time: 12:49 rn 08/21 10:02 Order name: Lipase; Complete Time: 12:49 rn 08/21 10:02 Order name: Urinalysis w/ reflexes; Complete Time: 15:15 rn 08/21 10:02 Order name: Flu; Complete Time: 12:17 rn 08/21 10:02 Order name: SARS RAPID; Complete Time: 12:17 rn 08/21 10:02 Order name: Protime (+inr); Complete Time: 12:49 rn 08/21 10:02 Order name: Ptt, Activated; Complete Time: 12:49 rn 08/21 12:17 Order name: Blood Culture Adult (2) rn 08/21 12:17 Order name: Lactate w/ 2H reflex if indic.; Complete Time: 13:56 rn 08/21 13:16 Order name: CBC Smear Scan; Complete Time: 13:23 EDSD 08/21 14:35 Order name: Urine Culture EDSD 08/21 14:59 Order name: CREATININE WHOLE BLOOD; Complete Time: 15:15 EDSD 08/21 16:27 Order name: Basic Metabolic Panel EDSD 08/21 16:27 Order name: Lactate w/ 2H reflex if indic. EDSD 08/21 16:27 Order name: CBC with Automated Diff EDSD 08/21 16:27 Order name: CBC with Automated Diff EDSD 08/21 16:36 Order name: Influenza Screen (A EDSD 08/21 16:37 Order name: Miscellaneous Test Lab EDSD 08/21 16:54 Order name: Hemoglobin A1c EDSD 08/21 10:02 Order name: XRAY Chest (1 view); Complete Time: 12:17 rn 08/21 11:45 Order name: Abdomen ; Complete Time: 12:17 EDSD 08/21 10:02 Order name: IV Saline Lock; Complete Time: 11:13 rn 08/21 10:02 Order name: Labs collected and sent; Complete Time: 11:13 rn 08/21 11:25 Order name: Labs - recollect needed: blue top; Complete Time: 12:12 bc6 08/21 12:17 Order name: Cardiac monitoring; Complete Time: 16:21 rn 08/21 12:17 Order name: EKG - Nurse/Tech; Complete Time: 16:21 rn 08/21 12:17 Order name: O2 Per Protocol; Complete Time: 12:20 rn 08/21 12:17 Order name: O2 Sat Monitoring; Complete Time: 12:20 rn 08/21 12:17 Order name: Vital Signs; Complete Time: 12:20 rn Administered Medications: 13:22 Drug: NS 0.9% IV 500 ml 500 ml IV at 1 bolus once; to be given as a bolus over 30 ph minutes Volume: 500 ml; Route: IV; Rate: 1 bolus; Site: left forearm; 13:55 Follow up: Response: No adverse reaction; IV Status: Completed infusion; IV Intake: ph 500ml 15:45 Drug: Rocephin IV 1 grams IV at calculated rate once; Given slow IV push per pharmacy ph instructions Route: IV; Rate: calculated rate; Site: left forearm; 16:21 Follow up: Response: No adverse reaction; IV Status: Completed infusion ph Disposition Summary: 08/21/24 15:18 Hospitalization Ordered Notes: Hospitalization Status: Inpatient Admission rn Location: Telemetry/MedSurg (Inpatient) rn Condition: Stable rn Problem: new rn Symptoms: have improved rn Bed/Room Type: Standard rn Provider: Elise Cathernie(08/21/24 15:19) rn Room Assignment: 204(08/21/24 16:33) sp Diagnosis - Pyelonephritis acute rn - Fever, unspecified rn - Muscle weakness (generalized) rn Forms: - Medication Reconciliation Form rn - SBAR form rn - Leadership Thank You Letter rn Signatures: Dispatcher [employer] EDMS Katie Mckay Roman, MD MD rn Hall, Patricia, RN RN ph Lewis, Lynsay, RN RN [facility] Cait Robertson 6 Corrections: (The following items were deleted from the chart) 10:03 10:03 CBC+H.LAB.BRZ ordered. EDMS EDMS 10:03 10:03 COMPREHENSIVE METABOLIC PANEL+C.LAB.BRZ ordered. EDMS EDMS 10:03 10:03 LIPASE+C.LAB.BRZ ordered. EDMS EDMS 10:03 10:03 Urinalysis+U.LAB.BRZ ordered. EDMS EDMS 10:03 10:03 Influenza Screen (A \T\ B)+BA.LAB.BRZ ordered. EDMS EDMS 10:03 10:03 SARS-COV-2 Antigen Rapid+I.LAB.BRZ ordered. EDMS EDMS 10:03 10:03 Abdomen Pelvis W Con+CT.RAD.BRZ ordered. EDMS EDMS 10:03 10:03 Chest Single View+RAD.RAD.BRZ ordered. EDMS EDMS 10:03 10:03 PROTIME (+INR)+COAG.LAB.BRZ ordered. EDMS EDMS 10:03 10:03 PTT, ACTIVATED+COAG.LAB.BRZ ordered. EDMS EDMS 12:17 12:17 BLOOD CULTURE*+BA.LAB.BRZ ordered. EDMS EDMS 12 12:17 LACTATE+C.LAB.BRZ ordered. EDMS EDMS 15:19 15:18 Zeus Parks rn rn 16:33 15:18 emma flores
[2024-08-21] MEDS ORDERED: CEFTRIAXONE 1000 MG/VIAL ONE (15:28)
[2024-08-21] MEDS ORDERED: NA CHLORIDE 0.9% 50 ML ONE (15:28)
[2024-08-21] MEDS ORDERED: MAGNESIUM HYDROXIDE 8% 30 ML PO PRN (16:15)
[2024-08-21] MEDS ORDERED: ACETAMINOPHEN 325 MG TABLET PO PRN (16:15)
[2024-08-21] MEDS ORDERED: ALBUTEROL 2.5 MG/3 ML NEB SOL NEB PRN (16:15)
[2024-08-21] MEDS ORDERED: ONDANSETRON 4 MG/2 ML VIAL IV PRN (16:15)
[2024-08-21] MEDS ORDERED: ZOLPIDEM TARTRATE 5 MG TABLET PO PRN (16:15)
[2024-08-21] MEDS ORDERED: GLUCAGON 1 MG/VIAL IM PRN (16:25)
[2024-08-21] MEDS ORDERED: D10W 125 ML IV PRN (16:25)
[2024-08-21] MEDS: INSULIN REGULAR (HUMAN) 100 UNIT/ML SQ SCH (16:30)
--- NOTE | 2024-08-21 16:41 | P.HP ---
Certification for Inpatient With expected LOS: >2 Midnights Practitioner: I am a practitioner with admitting privileges, knowledge of patient current condition, hospital course, and medical plan of care. Services: Services provided to patient in accordance with Admission requirements found in Title 42 Section 412.3 of the Code of Federal Regulations Patient History Date of Service: 08/21/24 Reason for admission: Malaise and fever for 3 days History of Present Illness: This is 74 years old female patient with past medical history notable for hyper cholesterolemia, type 2 diabetes who presented to emergency room for evaluation of malaise and fever, 100.1 at home, chills, anorexia, cough. She did not take any medication at home for her symptoms, denied any urinary or GI or respiratory symptoms. She has a history of acute pyelonephritis with multidrug-resistant organism, hospitalized March 2024 and discharged home the with home IV antibiotics through PICC line. Her vital signs were normal, normotensive, nontachycardic, good oxygenation 95% on room air upon arrival at emergency room. The workup on emergency room noted for mild leukocytosis with WBC 11.8 with shift to the left, UA concerning for UTI, CT of abdomen and pelvis revealed right nonobstructive kidney stone and extensive [place] nephric fat stranding suggestive of acute pyelonephritis. Patient received 5 mL normal saline bolus x 1 and ceftriaxone 1 g IV ordered and internal medicine is called for evaluation for admission. Allergies No Known Allergies Allergy (Verified 11/15/12 12:43) Home medications list reviewed: Yes Home Medications: Glyburide/Metformin HCl [Glucovance 5-500 mg Tablet] 1 each PO BID 03/18/24 gemfibroziL [Gemfibrozil] 600 mg PO BID 03/18/24 - Past Medical/Surgical History Diabetic: Yes -: Hyperlipidemia -: Diabetes mellitus -: Uterine cancer -: Cataracts Right eye -: Hysterectomy for uterine cancer -: Appendectomy -: Cholecystectomy -: Cataract Sx left eye -: Cervical spine surgery -: Bone spur removed from neck - Family History Father -: Heart disease Mother -: Diabetes Sister -: Cancer Notes: Leukemia - Social History Alcohol use: No CD- Drugs: No Caffeine use: Yes Review of Systems Other: Consitutional; fever(+), chills (+), rigor(-), night sweat(-), unintentional weight loss(-) HEENT; epistaxis (-), otorrhea (-), otalgia (-) Respiratory; shortness of breath (-), wheezing (-), cough (-), sputum (-), pleuritic chest pain (-) Cardiovascular; chest pain (-), peripheral edema (-), paroxysmal nocturnal dyspnea (-), orthopnea (-) Gastrointestinal; nausea (-), vomiting (-), abdominal pain (-), diarrhea (-), constipation (-), melena (-), hematochezia (-) Urinary; urinary frequency (-), dysuria (-), urgency (-), flank pain (-), gr oss hematuria (-) Skin; rash (-), pruritus (-) WHEAT GROWER; headache (-), paresthesia (-), numbness (-), paralysis (-), tremor (-), ataxia (-), dysphagia (-), dysarthria (-), diplopia (-) Physical Examination - Physical Exam Other Physical/Emotional Findings: - Physical Exam. General: Obese, not acutely ill looking, in no apparent distress,. HEENT: Normocephalic, atraumatic,. Neck: Supple, without JVD or goiter or thyroid mass. Respiratory: Normal breathing effort, clear to auscultation bilaterally, no crackles no wheezing or rhonchi. Cardiovascular: Regular rate and rhythm, S1, S2 normal, no murmur no gallop. Gastrointestinal: Normal bowel sounds, nondistended, nontender, No ascites, , No masses, no hepatosplenomegaly. Musculoskeletal: No clubbing, No peripheral edema. Integumentary: No rashes. Lymphatics: No axilla or cervical lymphadenopathy. Neurology; alert awake oriented x3, no focal neurologic deficit - Studies Laboratory Data (last 24 hrs) 08/21/24 08/21/24 08/21/24 12:10 12:10 12:10 WBC 11.80 H Hgb 12.6 Hct 36.8 Plt Count 203 PT 15.7 H INR 1.42 APTT 39.3 H Sodium 132 L Potassium 3.1 L BUN 27 H Creatinine 1.47 H Glucose 170 H Total Bilirubin 0.5 AST 26 ALT 26 Alkaline Phosphatase 52 Lipase 37 Microbiology Data (last 24 hrs): 08/21/24 11:09 Nasopharnyx Influenza Type A Antigen Screen - Final 08/21/24 11:09 Nasopharnyx Influenza Type B Antigen Screen - Final SARS-CoV-2 to antigen test negative Imagings Data: Chest x-ray personally reviewed no acute cardiopulmonary abnormality except mild increase interstitial infiltration CT of abdomen pelvis without contrast personally reviewed; extensive right perinephric fat stranding, 8 mm nonobstructive nephrolithiasis of the right kidney, no hydronephrosis, s/p cholecystectomy Assessment and Plan - Plan This is 74 years old female patient with a past medical history notable for type 2 diabetes, hypercholesterolemia, morbid obesity, acute pyelonephritis with multidrug-resistant organism in March 2024 which she required hospitalization and home IV antibiotics through PICC line who presented to emergency room for malaise and fever chill for 3 days and admitted for 1. Suspected right complicated pyelonephritis with nonobstructing nephrolithiasis by CT of abdomen and pelvis Mild elevated BUN/creatinine, UA consistent with UTI, not septic appearing, hemodynamically stable, will start meropenem 1 g every 12 hour based on her current kidney function given her history of MDR. Previous hospitalization record reviewed ; right pyelonephritis with bacteremia by ESBL Proteus, treated with meropenem, follow-up blood and urine culture, check serial lactate level #2 type 2 diabetes Will hold metformin and oral hypoglycemic agents, start her on low-dose insulin sliding scale, obtain hemoglobin A1c #3 report of dark stool Hemoglobin normal at 12.6, no sign of clinical bleeding, will check fecal occult blood DVT prophylaxis; enoxaparin subcu - Advance Directives Does patient have a Living Will: No Does patient have a Durable POA for Healthcare: No
[2024-08-21] MEDS: D5.45NS W/KCL 20MEQ 1,000 ML IV SCH (17:44)
[2024-08-21] MEDS: Meropenem 1,000 MG in NA CHLORIDE 0.9% 100 ML IV SCH (17:46)
[2024-08-21 17:53] VITALS: BMI 38.9
[2024-08-22 06:59] LABS: Absolute Lymphocytes (CBC) 0.8 K/uL (0.7-4.9); Absolute Monocytes 0.7 K/uL (0.1-1.3); Absolute Neutrophil 6.1 K/uL (1.8-8.0); Basophils % 0.2 % (0-1.3); Eosinophils % 0.1 % (0-4.4); Hemoglobin 11.7 g/dL (12.0-15.0); Lymphocytes % 10.7 % (15.3-44.8); MCH 30.3 pg (27.0-35.0); MCHC 35.4 g/dL (32.0-36.0); MCV 85.7 fL (80-100); MPV 7.9 fL (7.6-11.3); Monocytes % 8.7 % (3.3-12.3); Neutrophils % 80.3 % (41.7-73.7); Platelets 193 thou/uL (152-406); RBC Red Blood Cell Count 3.85 M/uL (3.86-4.86); Red Cell Distribution Width 13.7 % (12.1-15.2)
[2024-08-22 07:15] LABS: Anion Gap 8.3 mEq/L (5.0-15.0); Potassium 3.3 mEq/L (3.5-5.1)
[2024-08-22] MEDS: ENOXAPARIN 30 MG/0.3 ML SQ SCH (09:08)
[2024-08-22] MEDS: POTASSIUM CL SA 10 MEQ TAB PO ONE (09:08)
--- NOTE | 2024-08-22 14:13 | P.PN ---
Subjective Date of Service: 08/22/24 Chief Complaint: Malaise and fever for 3 days Subjective: No new changes She said that she is doing fine, no significant change overnight. Her temperature was noted 100 Fahrenheit, she still feels a little bit weak but no respiratory or GI or urinary symptoms, denies any pain. Review of Systems Other: Consitutional; fever(-), chills (-), rigor(-), night sweat(-), unintentional weight loss(-) HEENT; epistaxis (-), otorrhea (-), otalgia (-) Respiratory; shortness of breath (-), wheezing (-), cough (-), sputum (-), pleuritic chest pain (-) Cardiovascular; chest pain (-), peripheral edema (-), paroxysmal nocturnal dyspnea (-), orthopnea (-) Gastrointestinal; nausea (-), vomiting (-), abdominal pain (-), diarrhea (-), constipation (-), melena (-), hematochezia (-) Urinary; urinary frequency (-), dysuria (-), urgency (-), flank pain (-), gross hematuria (-) Skin; rash (-), pruritus (-) [employer]ER [employer]; headache (-), paresthesia (-), numbness (-), paralysis (-), tremor (-), ataxia (-), dysphagia (-), dysarthria (-), diplopia (-) Physical Examination - Vital Signs Temperature: 98.1 F Blood Pressure: 140/51 Pulse: 85 Respirations: 28 Pulse Ox (%): 95 - Physical Exam Other Physical/Emotional Findings: - Physical Exam. General: Obese, not acutely ill looking, in no apparent distress,. HEENT: Normocephalic, atraumatic,. Neck: Supple, without JVD or goiter or thyroid mass. Respiratory: Normal breat ho effort, clear to auscultation bilaterally, no crackles no wheezing or rhonchi. Cardiovascular: Regular rate and rhythm, S1, S2 normal, no murmur no gallop. Gastrointestinal: Normal bowel sounds, nondistended, nontender, No ascites, , No masses, no hepatosplenomegaly. Musculoskeletal: No clubbing, No peripheral edema. Integumentary: No rashes. Lymphatics: No axilla or cervical lymphadenopathy. Neurology; alert awake oriented x3, no focal neurologic deficit - Studies Microbiology Data (last 24 hrs): 08/21/24 11:09 Nasopharnyx Influenza Type A Antigen Screen - Final 08/21/24 11:09 Nasopharnyx Influenza Type B Antigen Screen - Final Assessment And Plan - Plan This is 74 years old female patient with a past medical history notable for type 2 diabetes, hypercholesterolemia, morbid obesity, acute pyelonephritis with multidrug-resistant organism in March 2024 which she required hospitalization and home IV antibiotics through PICC line who presented to emergency room for malaise and fever chill for 3 days and admitted for 1. Possible right complicated pyelonephritis with R nonobstructing nephrolithiasis by CT of abdomen and pelvis No sepsis, UA consistent with UTI, blood culture no growth to date, urine culture still pending CT of abdominal pelvis with IV contrast revealed extensive right perinephric fat infiltration, 8 mm nonobstructing nephrolithiasis Will continue meropenem 1 g every 12 hour given history of urosepsis with MRD, ESBL Proteus #2 type 2 diabetes Hemoglobin A1c 6.4, good glycemic control on low-dose insulin sliding scale Continue to hold metformin after IV contrast study #3 report of dark stool Stable hemoglobin 11-12, no sign of clinical bleeding, fecal occult blood pending DVT prophylaxis; enoxaparin subcu
[2024-08-22 23:16] VITALS: O2SAT 96
[2024-08-23] MEDS ORDERED: ALBUTEROL 2.5 MG/3 ML NEB SOL NEB PRN (07:29)
[2024-08-23] MEDS: METFORMIN HCL 500 MG TAB PO SCH (08:30)
[2024-08-23] MEDS: glyBURIDE 2.5 MG TAB PO SCH (08:30)
[2024-08-23] MEDS: gemfibroziL 600 MG TAB PO SCH (08:30)
[2024-08-23] MEDS ORDERED: METFORMIN HCL PO SCH (09:00)
[2024-08-23] MEDS ORDERED: GLYBURIDE PO SCH (09:00)
--- NOTE | 2024-08-23 12:09 | P.DS ---
Admission Date: 08/21/24 Discharge Date: 08/23/24 Disposition: ROUTINE DISCHARGE Discharge Condition: GOOD Reason for Admission: Malaise and fever for 3 days Brief History of Present Illness: This is 74 years old female patient with past medical history notable for hypercholesterolemia, type 2 diabetes who presented to emergency room for evaluation of malaise and fever, 100.1 at home, chills, anorexia, cough. She did not take any medication at home for her symptoms, denied any urinary or GI or respiratory symptoms. She has a history of acute pyelonephritis with multidrug-resistant organism, hospitalized March 2024 and discharged home the with home IV antibiotics through PICC line. The workup on emergency room noted for mild leukocytosis with WBC 11.8 with shift to the left, UA concerning for UTI, CT of abdomen and pelvis revealed right nonobstructive kidney stone and extensive [place] nephric fat stranding suggestive of acute pyelonephritis. Patient was admitted on general medical floor. Hospital Course: Her low-grade temperature resolved, her symptoms improved with antibiotics and IV hydration. She initially started on meropenem and downgraded to ceftriaxone after urine culture and sensitivity available. She will completed a 5-day course of antibiotics. 3 days of ciprofloxacin 500 mL twice daily will be described at discharge 1. 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 #3 well-controlled type 2 diabetes Hemoglobin A1c 6.4, good glycemic control on low-dose insulin sliding scale Continue to hold metformin after IV contrast study #4 asymptomatic right nonobstructing nephrolithiasis #5 report of dark stool Stable hemoglobin 11-12, no sign of clinical bleeding, fecal occult blood pending Vital Signs/Physical Exam: Temp Pulse Resp BP Pulse Ox 97.5 F 71 16 114/58 L 99 08/23/24 08:00 08/23/24 08:00 08/23/24 08:00 08/23/24 08:00 08/23/24 08:00 Other Physical/Emotional Findings: - Physical Exam. General: Obese, not acutely ill looking, in no apparent distress,. HEENT: Normocephalic, atraumatic,. Neck: Supple, without JVD or goiter or thyroid mass. Respiratory: Normal breathing effort, clear to auscultation bilaterally, no crackles no wheezing or rhonchi. Cardiovascular: Regular rate and rhythm, S1, S2 normal, no murmur no gallop. Gastrointestinal: Normal bowel sounds, nondistended, nontender, No ascites, , No masses, no hepatosplenomegaly. Musculoskeletal: No clubbing, No peripheral edema. Integumentary: No rashes. Lymphatics: No axilla or cervical lymphadenopathy. Neurology; alert awake oriented x3, no focal neurologic deficit Laboratory Data at Discharge: WBC 7.50 thou/uL (4.3-10.9) 08/22/24 06:31 Hgb 11.7 g/dL (12.0-15.0) L 08/22/24 06:31 Hct 33.0 % (36.0-45.0) L 08/22/24 06:31 Plt Count 193 thou/uL (152-406) 08/22/24 06:31 PT 15.7 SECONDS (9.4-12.5) H 08/21/24 12:10 INR 1.42 08/21/24 12:10 APTT 39.3 SECONDS (24.3-36.9) H 08/21/24 12:10 Sodium 134 mEq/L (136-145) L 08/22/24 06:31 Potassium 3.2 mEq/L (3.5-5.1) L 08/22/24 07:50 BUN 21 mg/dL (7-18) H 08/22/24 06:31 Creatinine 1.10 mg/dL (0.55-1.02) H 08/22/24 06:31 Glucose 130 mg/dL (74-106) H 08/22/24 06:31 Total Bilirubin 0.5 mg/dL (0.2-1.0) 08/21/24 12:10 AST 26 U/L (15-37) 08/21/24 12:10 ALT 26 U/L (13-56) 08/21/24 12:10 Alkaline Phosphatase 52 U/L (45-117) 08/21/24 12:10 Lipase 37 U/L (13-75) 08/21/24 12:10 Home Medications: Glyburide/Metformin HCl [Glucovance 5-500 mg Tablet] 1 each PO BID 03/18/24 gemfibroziL [Gemfibrozil] 600 mg PO BID 03/18/24 Ciprofloxacin HCl 500 mg PO BID 3 Days #6 08/23/24 gemfibroziL [Lopid*] 600 mg PO BIDWM tab 08/23/24 New Medications: Ciprofloxacin HCl 500 mg PO BID 3 Days #6 Physician Discharge Instructions: PROBLEM: Pyelonephritis GOAL: Clear understanding of disease process INSTRUCTIONS: Call 2nd floor nurse's station for any questions about your stay [phone] Follow up with your primary physician in 1 week - if you do not have one, see list attached Return to ER for any emergency Take medications as prescribed - Prescription included in your packet Diet: Regular diet Activity: as toelrated Follow up with a Family Medicine Physician of your choice: JOSE DAVID VILLALTA MD [address], [address] [place], [place] [address] ACCEPTING NEW PATIENTS! TOBY HOUSTON MD [address] [facility] [address] [facility], [address] [place] [address] ACCEPTING NEW PATIENTS! EVANANH Bess OLEA, DO [address] [address] FRANCINE BAEZ MD [address] [facility], [address] [place] [address] LEONOR LOCO MD [address] [facility], [address] [place] [address] DENIA MAR MD [address] [facility], [place] [address] [place] [address] ARIEL BOSWELL MD [address] [place] [address] ANDREA CLARK, BUCKLE SEWER [address], [address] [place] [address] KRYSTAL MARVIN MD [address] [facility], [address] [place] [address] FILIPPO MARVIN APRN [facility] [address], [address] [place], [place] [address] [facility] DO ARLEN [address], [address] [place] [address] Followup: Michelle Salazar MD [Primary Care Provider] -
[2024-08-23] MEDS: CEFTRIAXONE 1,000 MG in NA CHLORIDE 0.9% 50 ML IVPB SCH (17:04)
[2024-08-23 18:02] VITALS: BP 114/56; TEMP 97.8
[2024-08-24] MEDS ORDERED: CEFTRIAXONE 1,000 MG in NA CHLORIDE 0.9% 50 ML IVPB SCH (15:00)
== END 2024-08-23 17:55 | disposition home or self-care (01) | DRG 690 ==
LOC: ER 09:53 → 2ND 16:15
PROVIDERS: ADMIT Internal Medicine; ATTEND Internal Medicine
DX: N10 Acute pyelonephritis (principal); I12.9 Hypertensive chronic kidney disease with stage 1 through stage 4 chronic kidney disease, or unspecified chronic kidney disease; N18.31 Chronic kidney disease, stage 3a; E11.22 Type 2 diabetes mellitus with diabetic chronic kidney disease; N20.0 Calculus of kidney; E66.01 Morbid (severe) obesity due to excess calories; E78.00 Pure hypercholesterolemia, unspecified; F17.210 Nicotine dependence, cigarettes, uncomplicated; B96.4 Proteus (mirabilis) (morganii) as the cause of diseases classified elsewhere; Z88.7 Allergy status to serum and vaccine; Z11.52 Encounter for screening for COVID-19; Z90.49 Acquired absence of other specified parts of digestive tract; Z68.39 Body mass index [BMI] 39.0-39.9, adult; Z90.710 Acquired absence of both cervix and uterus
CPT/HCPCS: 36415; 71045; 74176; 80048; 80053; 81001; 82565; 82947; 83036; 83605; 83690; 84132; 85025; 85610; 85730; 87040; 87077; 87086; 87088; 87186; 87205; 87804; 87811; 96361; 96365; 99285; J0696; J1650; J2185; J7040